=== PATIENT | male | born 1975 | race Caucasian/White ===

== ENCOUNTER 2021-10-04 12:51 | Emergency (ER) | payer OTHER, SELFPAY ==
[2021-10-04 13:11] VITALS: BP 152/92; PULSE 96; RESP 16; TEMP 37.3; O2SAT 84
--- NOTE | 2021-10-04 13:15 | ED.URI ---
HPI - URI/Sore Throat General Chief Complaint: Upper Respiratory Infection Stated Complaint: sob/weakness Source: patient and RN notes reviewed Mode of arrival: ambulatory History of Present Illness HPI Narrative: This is a 45-year-old male that presented to urgent care due to shortness of breath. According to patient he has been short of breath for approximately 7 days he does not have a history of COPD or asthma. He did test positive for Covid today. Patient does have labored breathing and is using accessory muscles. He denies any other symptoms. He will transfer over to [facility] for further diagnostic testing accepted by Dr. García Related Data Home Medications Medication Instructions Recorded Confirmed No Home Medications 10/04/21 10/04/21 Allergies Allergy/AdvReac Type Severity Reaction Status Date / Time Penicillins Allergy Unknown Verified 01/21/15 14:28 Review of Systems Review of Systems: A 14 organ system Review of Systems was performed and pertinent positives included in the HPI, otherwise remaining ROS is negative. [facility] Family History Family History (Updated 10/04/21 @ 13:20 by NATI MontesP-C) Other Family history non-contributory Exam Narrative: GENERAL: This is a well-nourished, well-developed patient, in no apparent distress. HEAD: normocephalic, atraumatic. EYES: PERRL. Sclera clear/white. Vision is grossly intact. EARS: External ears normal, auditory canals clear and without drainage, TMs normal without perforation. Hearing grossly intact. NOSE: External nose normal with no obvious nasal discharge, nares without redness, no rhinorrhea. THROAT: Mucous membranes moist, posterior pharynx clear. NECK: Neck supple, non-tender without lymphadenopathy, masses or thyromegaly. CARDIOVASCULAR: Regular rate and rhythm without murmurs, gallops, or rubs. RESPIRATORY: Diminished GASTROINTESTINAL: Abdomen soft, non-tender, nondistended. Bowel sounds are active. No hepato-splenomegaly, or palpable masses. No guarding. SKIN: warm, intact with no suspicious lesions or rash, good texture and turgor. NEURO: awake, alert, and oriented to person, place and time. There were no obvious focal neurologic abnormalities. Steady gait EXTREMITIES: Normal range of motion. No edema. No calf tenderness. Negative Homans sign bilaterally. BACK: Nontender without deformity or crepitance. No flank tenderness. Course Course Emergency Course: Patient was transferred to [facility] accepted by Dr. García Vital Signs Vital signs: Vital Signs Temperature 99.2 F 10/04/21 13:11 Pulse Rate 96 10/04/21 13:11 Respiratory Rate 16 10/04/21 13:11 Blood Pressure 152/92 H 10/04/21 13:11 Pulse Oximetry 84 L 10/04/21 13:11 Temperature 99.2 F 10/04/21 13:11 Pulse Rate 96 10/04/21 13:11 Respiratory Rate 16 10/04/21 13:11 Blood Pressure 152/92 H 10/04/21 13:11 Pulse Oximetry 84 L 10/04/21 13:11 MDM - URI/Sore Throat Differential Diagnosis Differential diagnosis: Likely upper respiratory infection and other (covid) Discharge Plan Discharge Clinical Impression: Hypoxia Patient Disposition: Acute Care Hospital Condition: Stable Prescriptions: No Action No Home Medications RF: 0 Follow-up/Referrals: UNKNOWN,DOCTOR [Primary Care Provider] - Time of Disposition: 13:11
--- NOTE | 2021-10-04 13:36 | PC.NURSE ---
1302 placed on 6l o2/mrp controller, pulse ox immediately to 94%. 1308 [facility] called for transfer. [facility] here 1320 pulse ox 98% on 6l02 and hr 88. stated sob improved.
--- NOTE | 2021-10-04 13:46 | PC.NURSE ---
[facility] aware of covid + test upon arrival to [facility].
== END 2021-10-04 13:22 | disposition short-term general hospital (02) ==
PROVIDERS: Emergency Provider Nurse Practitioner
DX: U07.1 COVID-19 (principal)
CPT/HCPCS: 87426; 99215; C9803; G0463

== ENCOUNTER 2021-10-04 13:38 | Inpatient (IN) | payer OTHER, SELFPAY ==
[2021-10-04] VITALS (35 sets, daily range): BP systolic 140–178; BP diastolic 72–124; PULSE 80–103; RESP 12–48; TEMP 36.3–36.5; O2SAT 82–98; BMI 49.4
--- NOTE | ~2021-10-04 | XR_ITS ---
EXAMINATION: XR chest 1V portable INDICATION: COVID pneumonia TECHNIQUE: Portable AP chest at 0600 hours COMPARISON: 10/04/2021 FINDINGS: There are diffuse opacities throughout all lung zones with slight improvement. No pleural e ffusion or pneumothorax is identified. The cardiomediastinal silhouette is normal. IMPRESSION: 1. Diffuse lung disease with slight interval improvement, consistent with COVID 19 pneumonia. Reviewed, dictated and finalized at location A. MANAGEMENT ASSOCIATE
--- NOTE | ~2021-10-04 | CT_ITS ---
EXAMINATION: CTA chest PE protocol DATE: 10/04/2021 16:56 INDICATION: Shortness of breath, elevated d-dimer TECHNIQUE: Computed tomography angiography (CTA) of the chest was performed with 100 mL Omnipaque-350 intravenous contrast timed to evaluate the pulmonary arteries. Coronal maximum intensity projection 3D-reconstructions were created by the technologist. The dose-length product (DLP) was 1340.21 mGy-cm . Automated exposure control and iterative reconstruction technique were employed. COMPARISON: None. FINDINGS: There is poor opacification of the pulmonary arteries. No central pulmonary embolus is iden tified. Evaluation of the pulmonary arteries is otherwise suboptimal. There are patchy groundglass op acities throughout all lung zones. No pleural effusion or pneumothorax is identified. The heart size is normal. There is mild mediastinal and bilateral hilar lymphadenopathy. There is a common origin of the celiac axis and superior mesenteric artery. IMPRESSION: 1. Suboptimal evaluation of the pulmonary arteries without central pulmonary embolus identified. 2. Diffuse lung disease, consistent with COVID 19 pneumonia. Reviewed, dictated and finalized at location A. Y NUTRITION SPECIALIST IMPRESSION: 1. Suboptimal evaluation of the pulmonary arteries without central pulmonary em bolus identified. 2. Diffuse lung disease, consistent with COVID 19 pneumonia.
--- NOTE | ~2021-10-04 | XR_ITS ---
EXAMINATION: XR chest 1V portable INDICATION: COVID 19 positive, increasing shortness of breath TECHNIQUE: Portable AP chest at 1412 hours COMPARISON: 06/15/2013 FINDINGS: There are diffuse airspace opacities throughout all lung zones. No pleural effusion or pneu mothorax is identified. The cardiomediastinal silhouette is normal. IMPRESSION: 1. Diffuse lung disease, consistent with COVID 19 pneumonia. Reviewed, dictated and finalized at location A. CLIMBER
--- NOTE | ~2021-10-04 | US_ITS ---
EXAMINATION: US venous doppler [facility] DATE: 10/05/2021 10:27 INDICATION: Lower limb edema. TECHNIQUE: Grayscale ultrasound images without and with compression and Doppler ultrasound images of the bilateral lower extremity veins were obtained. COMPARISON: Ultrasound 06/09/2013 FINDINGS: The visualized portions of right common femoral vein, profunda (deep) femoral vein, femoral vein, pop liteal vein, peroneal veins, posterior tibial veins, and greater saphenous vein outflow are patent. The visualized portions of left common femoral vein, profunda femoral vein, femoral vein, popliteal v ein, peroneal veins, posterior tibial veins, and greater saphenous vein outflow are patent. IMPRESSION: 1. No deep venous thrombosis. Reviewed, dictated and finalized at location A. LLITE DISH REPAIRER
[2021-10-04 14:37] LABS: Basophils Absolute Auto 0.1 K/mm3 (0.0-0.1); Basophils Percent Auto 0.5 % (0.2-1.2); Eosinophils Percent Auto 0.1 % (0-4.4); Hematocrit 48.8 % (42.0-52.0); Hemoglobin 17.2 g/dL (14.0-18.0); Immature Granulocyte Absolute 0.07 K/mm3 (0.00-0.031); Immature Granulocyte Percent A 0.8 % (0-0.5); Lymphocytes Absolute Auto 2.51 K/mm3 (0.9-3.2); Lymphocytes Percent Auto 27.2 % (18.3-44.2); Mean Corpuscular HGB Conc 35.2 g/dl (32-36); Mean Corpuscular Hemoglobin 31.4 pg (26-34); Mean Corpuscular Volume 89.1 fl (80-100); Mean Platelet Volume 10.9 fl (7.4-10.4); Monocytes Absolute Auto 0.7 K/mm3 (0.1-0.6); Monocytes Percent Auto 7.3 % (2.6-8.5); Neutrophils Absolute Auto 5.9 K/mm3 (1.3-6.7); Neutrophils Percent Auto 64.1 % (45.5-73.1); Platelet Count Result 230 k/mm3 (150-375); Red Blood Count 5.48 M/mm3 (4.6-6.20); Red Cell Distribution Width 12.7 % (11.5-14.5); White Blood Count 9.2 K/mm3 (4.5-10.0)
[2021-10-04] MEDS: ALBUTEROL SULFATE (*SP) AEROSOL 1 PUFF 6 PUFF INHALATION (14:41)
[2021-10-04 14:47] LABS: Base Excess ABG 4.6 mEq/l (+/-2.0); HCO3 ABG 27.3 mEq/l (22.0-26.0); PO2 ABG 58.3 mmHg (80.0-100.0)
[2021-10-04 14:48] LABS: Alveolar/Arterial O2 Gradient 215.5 mmHg; Fractional Inspired Oxygen 44 %; Oxygen Content ABG 22.6 %vol (16.0-22.0); Oxygen Saturation ABG 92.8 % (95.0-100.0); PO2 FiO2 Ratio Arterial Blood 1.32 %; Site Drawn RIGHT RADIAL; Total Hemoglobin 17.7 g/dL (12.0-18.0)
[2021-10-04 14:48] LABS: Anion Gap 8 mmol/L (8-16); Blood Urea Nitrogen 15 mg/dL (9-20); Calcium 8.6 mg/dL (8.4-10.2); Carbon Dioxide 34 mmol/L (22-30); Chloride 87 mmol/L (98-107); Estimated CRCL calculation 171 ml/min; Estimated Glomerular Filt Rate > 60; Glucose 247 mg/dL (65-110); Lactate Dehydrogenase 1101 U/L (313-618); Sodium 129 mmol/L (137-145)
[2021-10-04 14:49] LABS: Device NASAL CANNULA; Modified Allen's Test Pass
[2021-10-04 14:53] LABS: D Dimer 0.92 ug/mL (<0.48)
[2021-10-04 15:00] LABS: NT Pro B Type Natriuretic Pept 32 pg/mL (5-100); Troponin I 0.019 ng/mL (0.000-0.034)
--- NOTE | 2021-10-04 15:45 | PM.IMHP ---
H&P: HPI History of Present Illness Date/Time: 10/04/21 15:45 Chief Complaint: Shortness of breath and low oxygen saturation. Narrative: This is a 45-year-old male with no reported significant medical history who presented to the emergency department earlier today from [facility] for further evaluation of shortness of breath and low oxygen saturations. He has not been feeling well for approximately 7 days with symptoms to include sinus congestion, rhinorrhea, cough, and increasing shortness of breath over couple of days. He tested positive for COVID-19 at urgent care and he was also hypoxic in the low 80s on arrival and thus he was directed to the emergency department. A CTA of the chest was suboptimal for evaluation of the pulmonary arteries though no central pulmonary embolus was identified. It did however show diffuse lung disease consistent with COVID pneumonia and he is being admitted in this setting. He has no known sick contacts and has not been vaccinated for COVID. He denies fever, chest pain, and pleuritic pain. His smell and taste have been a bit decreased as well as his appetite though he denies nausea and vomiting. Review of Systems Review of Systems: Twelve systems were reviewed with pertinent positives and negatives as per HPI. He has not had a fever to his knowledge. No syncope or near syncope. No significant sore throat. He has had some loose stools. No dysuria. Except as documented, all other systems were reviewed and are negative. [facility] Past Medical History Medical History (Updated 10/04/21 @ 23:35 by Brianna Love PA-C) Morbid obesity Surgical History Surgical History (Updated 10/04/21 @ 23:26 by Brianna Love PA-C) History of wisdom tooth extraction Family History Family History Mother Hypertension Diabetes mellitus Father Cerebrovascular accident Social History Social History (Updated 10/04/21 @ 23:27 by Brianna Love PA-C) Social History: The patient lives in his own home and [place]. He is not currently employed. He is a former smoker and quit in 2010. No alcohol or illicit substance abuse. He designates his mother, Gale Chinchilla, as his surrogate decision maker. Code status: Full code. Meds Home Medications and Allergies Home Medications Medication Instructions Recorded Confirmed Type No Home Medications 10/04/21 10/04/21 History Allergies Allergy/AdvReac Type Severity Reaction Status Date / Time Penicillins Allergy Unknown Unknown Verified 10/04/21 19:13 Vital Signs Vital Signs - 24 hr 10/04/21 13:40 10/04/21 14:17 10/04/21 14:30 Temperature 97.5 F L Pulse Rate 96 94 Respiratory Rate 48 H 20 Blood Pressure 152/99 H Pulse Oximetry 82 L 90 89 L 10/04/21 14:31 10/04/21 14:45 10/04/21 14:46 Temperature Pulse Rate 92 98 100 Respiratory Rate 24 H 27 H 25 H Blood Pressure 140/124 H 166/105 H Pulse Oximetry 90 89 L 91 10/04/21 14:50 10/04/21 14:51 10/04/21 15:00 Temperature Pulse Rate 98 98 Respiratory Rate 20 Blood Pressure Pulse Oximetry 90 90 10/04/21 15:01 10/04/21 15:24 10/04/21 15:30 Temperature Pulse Rate 99 80 Respiratory Rate 20 20 Blood Pressure 161/114 H Pulse Oximetry 89 L 91 90 10/04/21 15:31 10/04/21 16:04 10/04/21 16:08 Temperature Pulse Rate 90 88 96 Respiratory Rate 12 24 H 20 Blood Pressure Pulse Oximetry 91 98 96 10/04/21 16:15 10/04/21 16:30 10/04/21 16:32 Temperature Pulse Rate 96 97 80 Respiratory Rate 12 12 12 Blood Pressure 148/72 H Pulse Oximetry 97 97 96 10/04/21 16:38 10/04/21 16:50 10/04/21 17:19 Temperature Pulse Rate 92 Respiratory Rate 20 Blood Pressure Pulse Oximetry 96 91 96 10/04/21 17:40 10/04/21 17:46 10/04/21 18:00 Temperature Pulse Rate 103 H 102 H 94 Respiratory Rate 20 27 H Blood Pressure Pulse Oximetry 98 10/04/21 18:0
--- NOTE | 2021-10-04 16:34 | ED.SOB ---
HPI - SOB/Dyspnea General Chief Complaint: Shortness of Breath/Dyspnea Stated Complaint: sob covid + Time Seen by Provider: 10/04/21 14:00 Source: patient Mode of arrival: ambulatory Limitations: no limitations History of Present Illness HPI Narrative: 45-year-old male Not immunized Complains of URI symptoms for a week Today he got more short of breath and presented to urgent care where he was very hypoxic on room air and had a positive rapid Covid and was sent to the hospital Related Data Home Medications Medication Instructions Recorded Confirmed No Home Medications 10/04/21 10/04/21 Allergies Allergy/AdvReac Type Severity Reaction Status Date / Time Penicillins Allergy Unknown Verified 01/21/15 14:28 Review of Systems Review of Systems: All systems reviewed & are unremarkable except as noted in HPI and below Constitutional: Constitutional: Reports no additional constitutional complaints, Denies chills, Reports fatigue, Reports fever(s), Denies headache(s) and Reports weakness Eyes: Eyes: Reports no additional eye complaints and Denies change in vision ENT: Denies headache(s), Reports nasal congestion and Denies sore throat Cardiovascular: Cardiovascular: Denies chest pain and Denies dyspnea Respiratory: Respiratory: Reports cough and Reports dyspnea Gastrointestinal: Gastrointestinal: Denies abdominal pain, Denies diarrhea and Denies vomiting Genitourinary: Genitourinary: Denies dysuria and Denies urinary frequency Musculoskeletal: Musculoskeletal: Denies deformity, Denies arthralgias, Denies joint swelling and Denies numbness Integumentary/Breasts: Skin/Breast: Denies rash and Denies wounds Neurologic: Denies headache(s), Denies focal weakness and Denies numbness Psychiatric: Psychiatric: Reports no additional psychiatric complaints Endocrine: Endocrine: Reports no additional endocrine complaints Hematologic/Lymphatic: Hematologic/Lymphatic: Reports no additional hematologic/lymphatic complaints Allergic/Immunologic: Allergic/Immunologic: Reports no additional allergic/immunologic complaints [facility] Family History Family History Other Family history non-contributory Exam Const: General: cooperative, no acute distress and alert Nutritional Appearance: obese morbidly obese Orientation/consciousness: patient oriented x3 (alert) HENMT: Head: normal to inspection, normocephalic and atraumatic Ears: external ears normal General nose exam: no epistaxis Eyes: Conjunctivae: conjunctivae normal EOM: EOMs intact bilaterally Neck: Neck: normal visual inspection, supple and no JVD Resp: Effort & Inspection: normal respiratory effort and not labored Auscultation: rales, rhonchi, no wheezes and other (BS =) Other: Tachypneic Cardio: Rate: regular rate Rhythm: regular rhythm Heart sounds: no murmurs GI: GI Palp: Yes Soft to palpation and No Tenderness to palpation present (GI) Skin: General skin exam: normal color and no rashes or lesions noted Neuro: General: patient oriented x3 (alert) and moves all extremities Speech: normal speech Extrem: General: normal to inspection and no pedal edema Psych: Affect: normal affect Course Course Emergency Course: He was placed on BiPAP and did pretty well with his respiratory rate essentially being halved and his O2 sat in the upper 90s Discussed with hospitalist for admission Vital Signs Vital signs: Vital Signs Temperature 36.4 C L 10/04/21 13:40 Pulse Rate 96 10/04/21 13:40 Respiratory Rate 48 H 10/04/21 13:40 Blood Pressure 152/99 H 10/04/21 13:40 Pulse Oximetry 82 L 10/04/21 13:40 Temperature 36.4 C L 10/04/21 13:40 Pulse Rate 88 10/04/21 16:04 Respiratory Rate 24 H 10/04/21 16:04 Blood Pressure 152/99 H 10/04/21 13:40 Pulse Oximetry 98 10/04/21 16:04 MDM - SOB/Dyspnea Medical Records Attestation: I reviewed the patient's medical records
[2021-10-04] MEDS: ENOXAPARIN 120 MG/0.8 ML SYRINGE SUB-Q (17:09)
--- NOTE | 2021-10-04 21:01 | ADMGEN ---
This patient, John Chinchilla, was admitted to IMU Room 209-01 at 2100. Patient/family oriented to hospital policies and general routines including ID bracelet, bed and alarms, visiting hours, pain management, procedures, bathroom and other care routines, personal items, smoking policy, room service/diet, and visiting hours. Information on how to activate the Rapid Response Team has been discussed. Patient/Family are encouraged to report perceived risks to care and to ask questions if they do not understand what they are told or what they should do.
[2021-10-05] VITALS (16 sets, daily range): BP systolic 135–146; BP diastolic 79–95; PULSE 70–96; RESP 20–27; TEMP 35.7–36.7; O2SAT 90–97
[2021-10-05] MEDS: amLODIPine BESYLATE 5 MG TABLET PO (00:12)
[2021-10-05 00:44] LABS: Hemoglobin A1C 12.1 % (<5.7)
[2021-10-05 00:56] LABS: Prothrombin Time 13.2 Seconds (11.1-14.7)
[2021-10-05] MEDS: REMDESIVIR 200 MG/NS 250 ML 200 MG/250 ML BAG 250 MG IVPB (01:22)
[2021-10-05 04:47] LABS: Hematocrit 48.8 % (42.0-52.0); Hemoglobin 17.1 g/dL (14.0-18.0); Mean Corpuscular Hemoglobin 30.4 pg (26-34); Mean Corpuscular Volume 86.8 fl (80-100); Mean Platelet Volume 11.1 fl (7.4-10.4); Platelet Count Result 276 k/mm3 (150-375); Red Blood Count 5.62 M/mm3 (4.6-6.20); Red Cell Distribution Width 12.6 % (11.5-14.5); White Blood Count 6.8 K/mm3 (4.5-10.0)
[2021-10-05 05:02] LABS: Prothrombin Time 12.6 Seconds (11.1-14.7)
[2021-10-05 05:09] LABS: Alanine Aminotransferase 50 U/L (4-50); Albumin Level 3.3 g/dL (3.5-5.1); Alkaline Phosphatase 165 U/L (38-126); Anion Gap 13 mmol/L (8-16); Aspartate Amino Transferase 46 U/L (17-59); Bilirubin,Total 0.7 mg/dL (0.2-1.3); Blood Urea Nitrogen 26 mg/dL (9-20); CRP 5.5 mg/dL (<1.0); Calcium 8.6 mg/dL (8.4-10.2); Carbon Dioxide 28 mmol/L (22-30); Chloride 93 mmol/L (98-107); Estimated CRCL calculation 159 ml/min; Estimated Glomerular Filt Rate > 60; Glucose 399 mg/dL (65-110); Magnesium 2.3 mg/dL (1.6-2.3); Potassium 3.9 mmol/L (3.4-5.0); Sodium 134 mmol/L (137-145)
[2021-10-05 05:25] LABS: Lactate Dehydrogenase 893 U/L (313-618)
[2021-10-05 09:29] LABS: Glucose Point of Care 324 mg/dl (65-105)
[2021-10-05] MEDS: ENOXAPARIN 40 MG/0.4 ML SYRINGE SUB-Q (09:37)
[2021-10-05] MEDS: INSULIN ASPART (*BKC) 100 UNITS/ML SUB-Q ×3 (10:20→12:13)
--- NOTE | 2021-10-05 11:24 | PM.CNPUL ---
Assessment and Plan Assessment and plan (1) Pneumonia due to 2019-nCoV: Code(s): U07.1 - COVID-19; J12.82 - Pneumonia due to coronavirus disease 2019 Status: Acute Assessment and Plan: Patient tested positive for COVID-19 on 10/04 and started on remdesivir, dexamethasone on 10/04 and ordered baricitinib on 10/05 as he is now on BiPA for hypoxic respiratory failure. He is unvaccinated. - Remdesivir for 10 days Unless he should recover and tolerate room air with rest, ambulation and while sleeping. - Dexamethasone 6 mg IV for 10 days - Baricitinib 4 mg PO q DAY X 14 days or until discharge - Continuous pulse oximetry - Prone positioning as tolerated. - Avoid any fluid overload. - Will check influenza swab. Keep saturations are 90-94% And currently on BiPAP and would try transition to nasal cannula up to 15 L plus 15 N NRB, if fails then Airvo high flow nasal cannula. I discussed code status with patient and he full code including intubation if required. Discussed with Annie Parekh, will follow with you. (2) Acute respiratory failure with hypoxia: Code(s): J96.01 - Acute respiratory failure with hypoxia Status: Acute Assessment and Plan: Etiology of hypoxic respiratory failure is COVID pneumonia. no evidence of bacterial pneumonia. No it is a evidence of cardiac disease with a normal BNP of 32. 10/04 13:30 room air sats 82% 10/04 14:45 6 L NC with sats 90% 10/04 16:00 BiPAP RR14, 14/6, 60%, sats 91% 10/05 10:00, AVAPS 14, TV 500, EPAP8, 55% with sats 95% Keep saturations are 90-94% with nasal cannula up to 15 L plus 15 L NRB and if fails then Airvo high flow nasal cannula. History of Present Illness History of Present Illness Consult date: 10/05/21 Requesting physician: Annie Parekh PA-C Reason for consult: hypoxemia and other (COVID pneumonia) Chief complaint: COVID pneumonia, Hypoxemia Narrative: 10/05/2021: This is a new pulmonary consult for COVID pneumonia with hypoxemic respiratory failure 45-year-old male with a history of obstructive sleep apnea diagnosed by polysomnogram 5 years ago who was told he needed home CPAP machine but could not tolerate this and has been on treated. Patient is on no home medicines. Patient states that 7 days ago he developed sinus congestion and rhinorrhea. This progressed to cough with brown mucus and shortness of breath. He had a decrease in his taste and smell. Patient shortness of breath progressed and he presented to an urgent care and had a rapid COVID antigen test which was positive. Patient presented to our emergency department and had a room air saturation 82%. Patient was placed on 6 L nasal cannula and had a blood gas of 7.51/35/58. Patient's white count was 9.2. Creatinine was 0.8, BNP was 32, D-dimer was positive at 0.92, CT angiogram showed no PE but diffuse bilateral patchy alveolar and interstitial infiltrates consistent with COVID pneumonia. Patient was started on dexamethasone and remdesivir. On 10/04 at 4:00 p.m. patient had worsening hypoxemia and was placed on BiPAP. At baseline patient states that he can walk 5 blocks and then has to stop for knee pain rather than respiratory issues. He has had no respiratory limitations. Patient smoked 1/2 pack of cigarettes from age [age] for total of 3.5 pack years. Patient smokes marijuana cigarette once a month since high school and his last use was approximately a month ago. 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 10/05 Patient states that he feels about the same as he did yesterday and that the BiPAP mask does help him breathe. Patient states the BiPAP pressures were not comfortable and I changed him to a noninvasive ventilation with an Lesia abscess mode with a rate of 14, tidal volume 500, expiratory pressure 8, in spite minimal inspiratory pressure 9, maximal inspiratory pressure 30, inspirator
--- NOTE | 2021-10-05 11:49 | PM.IMPN ---
Progress Note: A&P Assessment and Plan (1) Pneumonia due to 2019-nCoV: Code(s): U07.1 - COVID-19; J12.82 - Pneumonia due to coronavirus disease 2019 Status: Acute Assessment and Plan: Patient's symptoms and CT findings consistent with COVID pneumonia -continue remdesivir, Decadron, and Lovenox -CTA negative for central PE -pulmonology consulted -continue oxygen needed to keep saturations greater than 90 (2) Acute respiratory failure with hypoxia: Code(s): J96.01 - Acute respiratory failure with hypoxia Status: Acute Assessment and Plan: Secondary to COVID pneumonia -continue BiPAP and respiratory plans to transition him to Airvo to see how he does (3) Diabetes mellitus, new onset: Code(s): E11.9 - Type 2 diabetes mellitus without complications Status: Acute Assessment and Plan: Patient was noted to have hyperglycemia while hospitalized A1c is 12.1 which is consistent with new onset diabetes -he states he has no history of this -we had a long discussion about his need for insulin -we will start with 5 units with meals as well as sliding scale. I also started Lantus (will likely need to be increased). I reviewed his insurance formulary and I believe Humalog and Lantus will be covered. I have contacted care coordination as well -unit educator consulted (4) Elevated blood pressure reading: Code(s): R03.0 - Elevated blood-pressure reading, without diagnosis of hypertension Status: Acute Assessment and Plan: Last blood pressure 144/95 but has been higher earlier in the stay -received 1 dose of amlodipine and depending on his pattern we may consider scheduling this (5) Morbid obesity: Code(s): E66.01 - Morbid (severe) obesity due to excess calories Status: Acute Assessment and Plan: Patient understands the importance of a healthy your lifestyle and and weight loss (6) Hyponatremia: Code(s): E87.1 - Hypo-osmolality and hyponatremia Status: Acute Assessment and Plan: Likely due to a combination of hyperglycemia and COVID pneumonia -134 today -monitor Time Spent With Patient Time with patient: 25 - 35 minutes Subjective Date/time seen: 10/05/21 11:49 Interval history: Pt is a 45-year-old male here for COVID and new onset diabetes. Patient was seen today and states he feels okay on the BiPAP and is just hungry. He does not really feel short of breath with movement now that he is on the BiPAP. He has no chest pain, nausea, vomiting, fevers, chills, abdominal pain or new leg swelling. He said he did not know he was a diabetic and we discussed diabetes and the need for insulin. He has agreed. He is unvaccinated. Review of Systems Review of Systems: All systems reviewed & are unremarkable except as noted in HPI and below Exam Narrative: General: Overweight patient resting comfortably in bed in no acute distress HEENT: normocephalic, BiPAP applied Neck: supple Neuro: Alert and oriented x4 CV:RRR Resp: Decreased breath sounds due to body habitus, crackles heard Abd: Soft, non distended. No pain to palpation. Positive bowel sounds Extremities: No swelling, erythema, or pain to palpation. Chronic venous stasis changes. Objective Data Vital Signs Vital Signs: Vital Signs - 24 hr 10/04/21 13:40 10/04/21 14:17 10/04/21 14:30 Temperature 97.5 F L Pulse Rate 96 94 Respiratory Rate 48 H 20 Blood Pressure 152/99 H Pulse Oximetry 82 L 90 89 L 10/04/21 14:31 10/04/21 14:45 10/04/21 14:46 Temperature Pulse Rate 92 98 100 Respiratory Rate 24 H 27 H 25 H Blood Pressure 140/124 H 166/105 H Pulse Oximetry 90 89 L 91 10/04/21 14:50 10/04/21 14:51 10/04/21 15:00 Temperature Pulse Rate 98 98 Respiratory Rate 20 Blood Pressure Pulse Oximetry 90 90 10/04/21 15:01 10/04/21 15:24 10/04/21 15:30 Temperature Pulse Rate 99 80 Respir
[2021-10-05] MEDS: BARICITINIB 2 MG TABLET 4 MG PO (12:14)
[2021-10-05 12:45] LABS: Influenza Control Positive
[2021-10-05 13:46] LABS: Glucose Point of Care 366 mg/dl (65-105)
[2021-10-05 17:24] LABS: Glucose Point of Care 464 mg/dl (65-105)
[2021-10-05] MEDS: INSULIN ASPART (*BKC) 100 UNITS/ML 15 UNITS SUB-Q (17:42)
[2021-10-05 18:52] LABS: Glucose Point of Care 494 mg/dl (65-105)
[2021-10-05] MEDS: INSULIN GLARGINE (*BKC) 100 UNITS/ML 20 UNITS SUB-Q (19:26)
[2021-10-05 20:47] LABS: Glucose Point of Care 380 mg/dl (65-105)
[2021-10-05] MEDS: REMDESIVIR 100 MG/NS 250 ML 100 MG/250 ML BAG 250 MG IVPB (21:31)
[2021-10-06] VITALS (15 sets, daily range): BP systolic 143–179; BP diastolic 88–107; PULSE 65–91; RESP 20–28; TEMP 36.2–37.2; O2SAT 93–97
[2021-10-06 05:35] LABS: Basophils Absolute Auto 0.1 K/mm3 (0.0-0.1); Basophils Percent Auto 0.5 % (0.2-1.2); Eosinophils Percent Auto 0.1 % (0-4.4); Hematocrit 47.5 % (42.0-52.0); Hemoglobin 16.2 g/dL (14.0-18.0); Lymphocytes Absolute Auto 4.14 K/mm3 (0.9-3.2); Lymphocytes Percent Auto 39.6 % (18.3-44.2); Mean Corpuscular HGB Conc 34.1 g/dl (32-36); Mean Corpuscular Hemoglobin 30.6 pg (26-34); Mean Corpuscular Volume 89.8 fl (80-100); Mean Platelet Volume 10.8 fl (7.4-10.4); Monocytes Percent Auto 9.1 % (2.6-8.5); Neutrophils Absolute Auto 5.2 K/mm3 (1.3-6.7); Neutrophils Percent Auto 49.7 % (45.5-73.1); Platelet Count Result 312 k/mm3 (150-375); Red Blood Count 5.29 M/mm3 (4.6-6.20); Red Cell Distribution Width 12.9 % (11.5-14.5); White Blood Count 10.5 K/mm3 (4.5-10.0)
[2021-10-06 05:52] LABS: Alanine Aminotransferase 45 U/L (4-50); Albumin Level 3.4 g/dL (3.5-5.1); Alkaline Phosphatase 160 U/L (38-126); Anion Gap 7 mmol/L (8-16); Aspartate Amino Transferase 44 U/L (17-59); Bilirubin,Total 0.6 mg/dL (0.2-1.3); Blood Urea Nitrogen 32 mg/dL (9-20); CRP 3.3 mg/dL (<1.0); Calcium 8.6 mg/dL (8.4-10.2); Carbon Dioxide 34 mmol/L (22-30); Chloride 92 mmol/L (98-107); Estimated CRCL calculation 144 ml/min; Estimated Glomerular Filt Rate > 60; Glucose 340 mg/dL (65-110); Potassium 3.9 mmol/L (3.4-5.0); Sodium 133 mmol/L (137-145)
--- NOTE | 2021-10-06 07:57 | PM.PNPUL ---
Progress Note: A&P Assessment and Plan (1) Pneumonia due to 2019-nCoV: Code(s): U07.1 - COVID-19; J12.82 - Pneumonia due to coronavirus disease 2019 Status: Acute Assessment and Plan: Patient tested positive for COVID-19 on 10/04 and started on remdesivir, dexamethasone on 10/04 and baricitinib on 10/05 as he was on BiPAP for hypoxic respiratory failure. He is unvaccinated. - Remdesivir for 10 days Unless he should recover and tolerate room air with rest, ambulation and while sleeping. - Dexamethasone 6 mg IV for 10 days - Baricitinib 4 mg PO q DAY X 14 days or until discharge - Continuous pulse oximetry - Prone positioning as tolerated. - Avoid any fluid overload. - Will check influenza swab. Keep saturations are 90-94% And currently on BiPAP and would try transition to nasal cannula up to 15 L plus 15 N NRB, if fails then Airvo high flow nasal cannula. I discussed code status with patient and he full code including intubation if required. 10/06 Patient currently on 14 L high-flow nasal cannula with saturations 96%. Patient states that his breathing is better. Lower extremity Dopplers were negative for DVT. His CRP has decreased to 3.3. influenza swab is negative. will follow with you. (2) Acute respiratory failure with hypoxia: Code(s): J96.01 - Acute respiratory failure with hypoxia Status: Acute Assessment and Plan: Etiology of hypoxic respiratory failure is COVID pneumonia. no evidence of bacterial pneumonia. No it is a evidence of cardiac disease with a normal BNP of 32. 10/04 13:30 room air sats 82% 10/04 14:45 6 L NC with sats 90% 10/04 16:00 BiPAP RR14, 14/6, 60%, sats 91% 10/05 10:00, AVAPS 14, TV 500, EPAP8, 55% with sats 95% 10/05 13:00 15 L NC with sats 92% 10/05 20:00 14 L NC with sats 92% 10/06 07:00 14 L NC with sats 95% Keep saturations are 90-94% with nasal cannula up to 15 L plus 15 L NRB and if fails then Airvo high flow nasal cannula and if fails then BiPAP and if fails then intubation. Subjective Date/time seen: 10/06/21 07:57 Interval history: 10/05/2021: This is a new pulmonary consult for COVID pneumonia with hypoxemic respiratory failure 45-year-old male with a history of obstructive sleep apnea diagnosed by polysomnogram 5 years ago who was told he needed home CPAP machine but could not tolerate this and has been on treated. Patient is on no home medicines. Patient states that 7 days ago he developed sinus congestion and rhinorrhea. This progressed to cough with brown mucus and shortness of breath. He had a decrease in his taste and smell. Patient shortness of breath progressed and he presented to an urgent care and had a rapid COVID antigen test which was positive. Patient presented to our emergency department and had a room air saturation 82%. Patient was placed on 6 L nasal cannula and had a blood gas of 7.51/35/58. Patient's white count was 9.2. Creatinine was 0.8, BNP was 32, D-dimer was positive at 0.92, CT angiogram showed no PE but diffuse bilateral patchy alveolar and interstitial infiltrates consistent with COVID pneumonia. Patient was started on dexamethasone and remdesivir. On 10/04 at 4:00 p.m. patient had worsening hypoxemia and was placed on BiPAP. At baseline patient states that he can walk 5 blocks and then has to stop for knee pain rather than respiratory issues. He has had no respiratory limitations. Patient smoked 1/2 pack of cigarettes from age [age] for total of 3.5 pack years. Patient smokes marijuana cigarette once a month since high school and his last use was approximately a month ago. 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 10/05 Patient states that he feels about the same as he did yesterday and that the BiPAP mask does help him breathe. Patient states the BiPAP pressures were not comfortable and I changed him to a noninvasive venti
[2021-10-06] MEDS: ENOXAPARIN 40 MG/0.4 ML SYRINGE SUB-Q (09:26)
[2021-10-06] MEDS: BARICITINIB 2 MG TABLET 4 MG PO (09:26)
[2021-10-06] MEDS: INSULIN ASPART (*BKC) 100 UNITS/ML 7 UNITS SUB-Q ×3 (09:28→17:17)
[2021-10-06] MEDS: INSULIN ASPART (*BKC) 100 UNITS/ML SUB-Q ×3 (09:28→17:17)
[2021-10-06 10:30] LABS: Glucose Point of Care 283 mg/dl (65-105)
[2021-10-06] MEDS: hydrALAZINE HCL 20 MG/ML VIAL 10 MG IV PUSH (10:47)
--- NOTE | 2021-10-06 12:52 | PM.IMPN ---
Progress Note: A&P Assessment and Plan (1) Pneumonia due to 2019-nCoV: Code(s): U07.1 - COVID-19; J12.82 - Pneumonia due to coronavirus disease 2019 Status: Acute Assessment and Plan: Patient's symptoms and CT findings consistent with COVID pneumonia and PCR confirms this -continue remdesivir, Decadron, baricitinib, and Lovenox -CTA negative for central PE -pulmonology consulted -continue oxygen needed to keep saturations greater than 90 (2) Acute respiratory failure with hypoxia: Code(s): J96.01 - Acute respiratory failure with hypoxia Status: Acute Assessment and Plan: Secondary to COVID pneumonia -continue o2 and wean as tolerated (3) Diabetes mellitus, new onset: Code(s): E11.9 - Type 2 diabetes mellitus without complications Status: Acute Assessment and Plan: Last glucose 283 but has been higher than 400 this stay -A1c is 12.1 which is consistent with new onset diabetes -he states he has no history of this -we had a long discussion about his need for insulin -Increase lantus to 30u daily and do 7u of scheduled insulin with SSI as well. -elementary educator consulted (4) Morbid obesity: Code(s): E66.01 - Morbid (severe) obesity due to excess calories Status: Acute Assessment and Plan: Patient understands the importance of a healthy your lifestyle and and weight loss (5) Hyponatremia: Code(s): E87.1 - Hypo-osmolality and hyponatremia Status: Acute Assessment and Plan: Likely due to a combination of hyperglycemia and COVID pneumonia -133 today -monitor (6) Essential hypertension: Code(s): I10 - Essential (primary) hypertension Status: Acute Assessment and Plan: Last bp 179/107 (hydralizine given) -pt has a hx of htn but stopped his medication. Will start norvasc daily Subjective Date/time seen: 10/06/21 12:52 Interval history: Pt is a 45-year-old male here for COVID and new onset diabetes. Patient was seen today and states he feels good. He doesn't really have much SOB at rest or with walking. He has a very mild dry cough. He has no chest pain, nausea, vomiting, fevers, chills, abdominal pain or new leg swelling. He has had a hx of htn in the past. He is unvaccinated. Exam Narrative: General: Overweight patient resting comfortably in bed in no acute distress HEENT: normocephalic, highflow o2 applied Neck: supple Neuro: Alert and oriented x4 CV:RRR. tele with no abnormal reviews Resp: Decreased breath sounds due to body habitus Abd: Soft, non distended. No pain to palpation. Positive bowel sounds Extremities: No swelling, erythema, or pain to palpation. Chronic venous stasis changes. Objective Data Vital Signs Vital Signs: Vital Signs - 24 hr 10/05/21 13:01 10/05/21 14:00 10/05/21 16:00 Temperature 98.0 F Pulse Rate 85 91 Respiratory Rate 20 Blood Pressure 146/84 H Pulse Oximetry 92 96 10/05/21 18:00 10/05/21 20:00 10/05/21 22:00 Temperature 97.9 F Pulse Rate 87 80 79 Respiratory Rate 20 Blood Pressure 141/79 H Pulse Oximetry 92 10/06/21 00:00 10/06/21 02:00 10/06/21 04:00 Temperature 97.2 F L 97.8 F Pulse Rate 70 73 69 Respiratory Rate 20 24 H Blood Pressure 158/91 H 150/105 H Pulse Oximetry 93 94 10/06/21 06:00 10/06/21 08:00 10/06/21 08:57 Temperature 97.4 F L Pulse Rate 65 71 Respiratory Rate 28 H Blood Pressure 179/107 H Pulse Oximetry 96 94 10/06/21 10:00 Temperature Pulse Rate 80 Respiratory Rate Blood Pressure Pulse Oximetry Intake/Output Intake/Output: Intake & Output 10/03/21 10/04/21 10/05/21 10/06/21 23:59 23:59 23:59 23:59 Intake Total 1580 1690 Output Total 1600 1100 Balance -20 590 Meds/Results Medications: Active Medications Generic Name Dose Route Start Last Admin Trade Name Freq PRN Reason Stop Dose Admin Acetaminophen 650 mg 10/04/21 16:
[2021-10-06 13:09] LABS: Glucose Point of Care 298 mg/dl (65-105)
[2021-10-06 19:36] LABS: Glucose Point of Care 354 mg/dl (65-105)
[2021-10-06] MEDS: REMDESIVIR 100 MG/NS 250 ML 100 MG/250 ML BAG 250 MG IVPB (21:08)
[2021-10-06] MEDS: INSULIN GLARGINE (*BKC) 100 UNITS/ML 30 UNITS SUB-Q (21:08)
[2021-10-06 21:16] LABS: Glucose Point of Care 316 mg/dl (65-105)
[2021-10-07] VITALS (13 sets, daily range): BP systolic 139–156; BP diastolic 89–101; PULSE 62–89; RESP 18–20; TEMP 36.4–37; O2SAT 91–99
[2021-10-07 06:09] LABS: Basophils Absolute Auto 0.1 K/mm3 (0.0-0.1); Basophils Percent Auto 0.7 % (0.2-1.2); Eosinophils Absolute Auto 0.1 K/mm3 (0-0.3); Eosinophils Percent Auto 0.6 % (0-4.4); Hematocrit 45.4 % (42.0-52.0); Hemoglobin 15.6 g/dL (14.0-18.0); Immature Granulocyte Absolute 0.13 K/mm3 (0.00-0.031); Immature Granulocyte Percent A 1.2 % (0-0.5); Lymphocytes Absolute Auto 4.46 K/mm3 (0.9-3.2); Lymphocytes Percent Auto 42.1 % (18.3-44.2); Mean Corpuscular HGB Conc 34.4 g/dl (32-36); Mean Corpuscular Hemoglobin 30.5 pg (26-34); Mean Corpuscular Volume 88.7 fl (80-100); Mean Platelet Volume 10.6 fl (7.4-10.4); Monocytes Absolute Auto 1.1 K/mm3 (0.1-0.6); Monocytes Percent Auto 10.7 % (2.6-8.5); Neutrophils Absolute Auto 4.8 K/mm3 (1.3-6.7); Neutrophils Percent Auto 44.7 % (45.5-73.1); Platelet Count Result 317 k/mm3 (150-375); Red Blood Count 5.12 M/mm3 (4.6-6.20); Red Cell Distribution Width 12.5 % (11.5-14.5); White Blood Count 10.6 K/mm3 (4.5-10.0)
[2021-10-07 06:16] LABS: Alanine Aminotransferase 46 U/L (4-50); Anion Gap 5 mmol/L (8-16); Aspartate Amino Transferase 47 U/L (17-59); Blood Urea Nitrogen 27 mg/dL (9-20); CRP 1.3 mg/dL (<1.0); Calcium 8.4 mg/dL (8.4-10.2); Carbon Dioxide 29 mmol/L (22-30); Chloride 93 mmol/L (98-107); Estimated CRCL calculation 199 ml/min; Estimated Glomerular Filt Rate > 60; Glucose 247 mg/dL (65-110); Sodium 127 mmol/L (137-145)
[2021-10-07 07:01] LABS: Prothrombin Time 13.3 Seconds (11.1-14.7)
[2021-10-07 08:53] LABS: Glucose Point of Care 197 mg/dl (65-105)
[2021-10-07] MEDS: ENOXAPARIN 40 MG/0.4 ML SYRINGE SUB-Q (09:13)
[2021-10-07] MEDS: BARICITINIB 2 MG TABLET 4 MG PO (09:13)
[2021-10-07] MEDS: INSULIN ASPART (*BKC) 100 UNITS/ML 7 UNITS SUB-Q ×3 (09:14→16:57)
[2021-10-07] MEDS: amLODIPine BESYLATE 5 MG TABLET PO (09:14)
[2021-10-07 09:45] LABS: Sodium Urine Random 24 meq/L
[2021-10-07 12:42] LABS: Glucose Point of Care 282 mg/dl (65-105)
--- NOTE | 2021-10-07 13:06 | PM.PNPUL ---
Progress Note: A&P Assessment and Plan (1) Pneumonia due to 2019-nCoV: Code(s): U07.1 - COVID-19; J12.82 - Pneumonia due to coronavirus disease 2019 Status: Acute Assessment and Plan: Patient tested positive for COVID-19 on 10/04 and started on remdesivir, dexamethasone on 10/04 and baricitinib on 10/05 as he was on BiPAP for hypoxic respiratory failure. He is unvaccinated. - Remdesivir for 10 days Unless he should recover and tolerate room air with rest, ambulation and while sleeping. - Dexamethasone 6 mg IV for 10 days - Baricitinib 4 mg PO q DAY X 14 days or until discharge - Continuous pulse oximetry - Prone positioning as tolerated. - Avoid any fluid overload. - Will check influenza swab. Keep saturations are 90-94% And currently on BiPAP and would try transition to nasal cannula up to 15 L plus 15 N NRB, if fails then Airvo high flow nasal cannula. I discussed code status with patient and he full code including intubation if required. 10/06 Patient currently on 14 L high-flow nasal cannula with saturations 96%. Patient states that his breathing is better. Lower extremity Dopplers were negative for DVT. His CRP has decreased to 3.3. influenza swab is negative. 10/07. Patient currently on 4 L high-flow nasal cannula saturations 94%. Chest x-ray demonstrated mild improvement in his diffuse interstitial alveolar infiltrates. He is afebrile. Patient states that he is feeling better. Patient should have home O2 assessment an overnight oximetry prior to discharge to determine his oxygen needs. Patient should have chest x-ray prior to discharge to serve as a new baseline. Discussed with Annie gao. Will sign off. Please call with questions.. (2) Acute respiratory failure with hypoxia: Code(s): J96.01 - Acute respiratory failure with hypoxia Status: Acute Assessment and Plan: Etiology of hypoxic respiratory failure is COVID pneumonia. no evidence of bacterial pneumonia. No it is a evidence of cardiac disease with a normal BNP of 32. 10/04 13:30 room air sats 82% 10/04 14:45 6 L NC with sats 90% 10/04 16:00 BiPAP RR14, 14/6, 60%, sats 91% 10/05 10:00, AVAPS 14, TV 500, EPAP8, 55% with sats 95% 10/05 13:00 15 L NC with sats 92% 10/05 20:00 14 L NC with sats 92% 10/06 07:00 14 L NC with sats 95% 10/07 11:00 4 L HF with sats 94% Keep saturations are 90-94% with nasal cannula up to 15 L plus 15 L NRB and if fails then Airvo high flow nasal cannula and if fails then BiPAP and if fails then intubation. Subjective Date/time seen: 10/07/21 13:06 Interval history: 10/05/2021: This is a new pulmonary consult for COVID pneumonia with hypoxemic respiratory failure 45-year-old male with a history of obstructive sleep apnea diagnosed by polysomnogram 5 years ago who was told he needed home CPAP machine but could not tolerate this and has been on treated. Patient is on no home medicines. Patient states that 7 days ago he developed sinus congestion and rhinorrhea. This progressed to cough with brown mucus and shortness of breath. He had a decrease in his taste and smell. Patient shortness of breath progressed and he presented to an urgent care and had a rapid COVID antigen test which was positive. Patient presented to our emergency department and had a room air saturation 82%. Patient was placed on 6 L nasal cannula and had a blood gas of 7.51/35/58. Patient's white count was 9.2. Creatinine was 0.8, BNP was 32, D-dimer was positive at 0.92, CT angiogram showed no PE but diffuse bilateral patchy alveolar and interstitial infiltrates consistent with COVID pneumonia. Patient was started on dexamethasone and remdesivir. On 10/04 at 4:00 p.m. patient had worsening hypoxemia and was placed on BiPAP. At baseline patient states that he can walk 5 blocks and then has to stop for knee pain rather than respiratory issues. He has had no respiratory limitations. Patient smoked 1/2 pack of c
[2021-10-07] MEDS: INSULIN ASPART (*BKC) 100 UNITS/ML SUB-Q ×2 (13:14→16:57)
--- NOTE | 2021-10-07 13:38 | PM.IMPN ---
Progress Note: A&P Assessment and Plan (1) Pneumonia due to 2019-nCoV: Code(s): U07.1 - COVID-19; J12.82 - Pneumonia due to coronavirus disease 2019 Status: Acute Assessment and Plan: Patient's symptoms and CT findings consistent with COVID pneumonia and PCR confirms this -continue remdesivir, Decadron, baricitinib, and Lovenox -CTA negative for central PE -pulmonology consulted -down to 4L, was on bipap on admission -continue oxygen needed to keep saturations greater than 90 -okay to move to a regular medical floor with continuous pulse ox. (2) Acute respiratory failure with hypoxia: Code(s): J96.01 - Acute respiratory failure with hypoxia Status: Acute Assessment and Plan: Secondary to COVID pneumonia -continue o2 and wean as tolerated (3) Diabetes mellitus, new onset: Code(s): E11.9 - Type 2 diabetes mellitus without complications Status: Acute Assessment and Plan: Last glucose 282 but has been higher than 400 this stay -A1c is 12.1 which is consistent with new onset diabetes -he states he has no history of this -we had a long discussion about his need for insulin -Continue Lantus 30u daily and 7u of scheduled insulin with SSI as well. -satellite communications operator consulted (4) Morbid obesity: Code(s): E66.01 - Morbid (severe) obesity due to excess calories Status: Acute Assessment and Plan: Patient understands the importance of a healthy your lifestyle and and weight loss (5) Hyponatremia: Code(s): E87.1 - Hypo-osmolality and hyponatremia Status: Acute Assessment and Plan: Likely due to a combination of hyperglycemia and COVID pneumonia -127 today and 129-131 when corrected for hypoglycemia -Urine sodium 24 -will place on a fluid restriction -monitor (6) Essential hypertension: Code(s): I10 - Essential (primary) hypertension Status: Acute Assessment and Plan: Last bp 155/101 -pt has a hx of htn but stopped his medication. -Norvas started this stay, continue with this Subjective Date/time seen: 10/07/21 13:38 Interval history: Pt is a 45-year-old male here for COVID and new onset diabetes. Patient was seen today and states he feels good. He doesn't really have much SOB at rest or with walking. He has a very mild dry cough. He has no chest pain, nausea, vomiting, fevers, chills, abdominal pain or new leg swelling. He is eating and drinking okay. he had some soft stool today. Exam Narrative: General: Overweight patient resting comfortably in bed in no acute distress HEENT: normocephalic, highflow o2 applied Neck: supple Neuro: Alert and oriented x4. CV:RRR. Triplet pvc noted Resp: Decreased breath sounds due to body habitus Abd: Soft, non distended. No pain to palpation. Positive bowel sounds Extremities: Chronic non-pitting swelling with chronic venous stasis changes to both LE. Objective Data Vital Signs Vital Signs: Vital Signs - 24 hr 10/06/21 14:00 10/06/21 16:00 10/06/21 18:00 Temperature 98.9 F Pulse Rate 79 77 79 Respiratory Rate 22 H Blood Pressure 143/88 H Pulse Oximetry 96 10/06/21 20:00 10/06/21 20:20 10/06/21 22:00 Temperature 98.7 F Pulse Rate 75 73 Respiratory Rate 20 Blood Pressure 143/96 H Pulse Oximetry 96 96 10/07/21 00:00 10/07/21 02:00 10/07/21 04:00 Temperature 97.5 F L 97.5 F L Pulse Rate 71 64 79 Respiratory Rate 18 20 Blood Pressure 139/97 H 146/96 H Pulse Oximetry 94 95 10/07/21 06:00 10/07/21 08:00 10/07/21 10:00 Temperature 98.6 F Pulse Rate 89 70 79 Respiratory Rate 20 Blood Pressure 147/95 H Pulse Oximetry 94 10/07/21 12:00 Temperature 98.2 F Pulse Rate 72 Respiratory Rate 20 Blood Pressure 155/101 H Pulse Oximetry 92 Intake/Output Intake/Output: Intake & Output 10/04/21 10/05/21 10/06/21 10/07/21 23:59 23:59 23:59 23:59 Intake Total 7986 8805 1990 Output
[2021-10-07 16:47] LABS: Glucose Point of Care 347 mg/dl (65-105)
[2021-10-07] MEDS: INSULIN GLARGINE (*BKC) 100 UNITS/ML 30 UNITS SUB-Q (21:01)
[2021-10-07] MEDS: REMDESIVIR 100 MG/NS 250 ML 100 MG/250 ML BAG 250 MG IVPB (21:01)
[2021-10-07 22:03] LABS: Glucose Point of Care 255 mg/dl (65-105)
[2021-10-08] VITALS (7 sets, daily range): BP systolic 137–149; BP diastolic 75–92; PULSE 74–81; RESP 14–16; TEMP 36.7–37; O2SAT 93–96; BMI 48.3
--- NOTE | 2021-10-08 01:26 | PC.NURSE ---
This patient, John Chinchilal, was transferred to [[facility] ] on 10/08/21 at 0115 on Room Air . Personal belongings sent with patient. Report given to [Florian ]. Appropriate documentation sent with patient.
[2021-10-08 08:09] LABS: Glucose Point of Care 172 mg/dl (65-105)
--- NOTE | 2021-10-08 08:16 | PC.NURSE ---
10/08/21 Pt admitted to [facility] surge room 320-1 from IMU
[2021-10-08] MEDS: INSULIN ASPART (*BKC) 100 UNITS/ML 7 UNITS SUB-Q ×3 (09:16→17:37)
[2021-10-08] MEDS: ENOXAPARIN 40 MG/0.4 ML SYRINGE SUB-Q (09:16)
[2021-10-08] MEDS: amLODIPine BESYLATE 5 MG TABLET PO (09:16)
[2021-10-08] MEDS: BARICITINIB 2 MG TABLET 4 MG PO (09:16)
[2021-10-08 09:31] LABS: Prothrombin Time 13.4 Seconds (11.1-14.7)
[2021-10-08 09:32] LABS: Basophils Percent Auto 0.4 % (0.2-1.2); Eosinophils Absolute Auto 0.1 K/mm3 (0-0.3); Eosinophils Percent Auto 1.2 % (0-4.4); Hematocrit 49.5 % (42.0-52.0); Hemoglobin 17.1 g/dL (14.0-18.0); Immature Granulocyte Absolute 0.22 K/mm3 (0.00-0.031); Lymphocytes Absolute Auto 4.23 K/mm3 (0.9-3.2); Lymphocytes Percent Auto 38.4 % (18.3-44.2); Mean Corpuscular HGB Conc 34.5 g/dl (32-36); Mean Corpuscular Hemoglobin 31.1 pg (26-34); Monocytes Absolute Auto 1.1 K/mm3 (0.1-0.6); Monocytes Percent Auto 9.5 % (2.6-8.5); Neutrophils Absolute Auto 5.3 K/mm3 (1.3-6.7); Neutrophils Percent Auto 48.5 % (45.5-73.1); Platelet Count Result 352 k/mm3 (150-375); Red Cell Distribution Width 12.7 % (11.5-14.5)
[2021-10-08 09:36] LABS: Alanine Aminotransferase 56 U/L (4-50); Anion Gap 6 mmol/L (8-16); Aspartate Amino Transferase 52 U/L (17-59); Blood Urea Nitrogen 21 mg/dL (9-20); Calcium 8.9 mg/dL (8.4-10.2); Carbon Dioxide 35 mmol/L (22-30); Chloride 95 mmol/L (98-107); Estimated CRCL calculation 156 ml/min; Estimated Glomerular Filt Rate > 60; Glucose 177 mg/dL (65-110); Magnesium 2.2 mg/dL (1.6-2.3); Potassium 4.3 mmol/L (3.4-5.0); Sodium 136 mmol/L (137-145)
[2021-10-08 11:46] LABS: Glucose Point of Care 269 mg/dl (65-105)
[2021-10-08 12:00] LABS: Sodium 133 mmol/L (137-145)
[2021-10-08] MEDS: INSULIN ASPART (*BKC) 100 UNITS/ML SUB-Q ×2 (12:49→17:36)
--- NOTE | 2021-10-08 13:24 | PM.IMPN ---
Progress Note: A&P Assessment and Plan (1) Pneumonia due to 2019-nCoV: Code(s): U07.1 - COVID-19; J12.82 - Pneumonia due to coronavirus disease 2019 Status: Acute Assessment and Plan: Patient's symptoms and CT findings consistent with COVID pneumonia and PCR confirms this -continue remdesivir (day 4), Decadron, baricitinib, and Lovenox -CTA negative for central PE -now on RA. Plan for home o2 tomorrow with possible d/c (2) Acute respiratory failure with hypoxia: Code(s): J96.01 - Acute respiratory failure with hypoxia Status: Acute Assessment and Plan: Secondary to COVID pneumonia -resolved (3) Diabetes mellitus, new onset: Code(s): E11.9 - Type 2 diabetes mellitus without complications Status: Acute Assessment and Plan: Last glucose 269 -A1c is 12.1 which is consistent with new onset diabetes -he states he has no history of this -we had a long discussion about his need for insulin -Continue Lantus 30u daily and 7u of scheduled insulin with SSI as well. -certified lactation educator consulted (4) Morbid obesity: Code(s): E66.01 - Morbid (severe) obesity due to excess calories Status: Acute Assessment and Plan: Patient understands the importance of a healthy your lifestyle and and weight loss (5) Hyponatremia: Code(s): E87.1 - Hypo-osmolality and hyponatremia Status: Acute Assessment and Plan: Likely due to a combination of hyperglycemia and COVID pneumonia -133 today -Urine sodium 24 -okay to stop fluid restriction -monitor (6) Essential hypertension: Code(s): I10 - Essential (primary) hypertension Status: Acute Assessment and Plan: Last bp 137/75 -pt has a hx of htn but stopped his medication. -Norvas started this stay, continue with this Subjective Date/time seen: 10/08/21 13:24 Interval history: Pt is a 46-year-old male here for COVID and new onset diabetes. Patient was seen today and states he feels good. He doesn't really have much SOB at rest or with walking. He has a very mild dry cough with scant sputum production that is clear. He has no chest pain, nausea, vomiting, fevers, chills, abdominal pain or new leg swelling. He is eating and drinking okay. he had one episode of diarrhea today. Exam Narrative: General: Overweight patient resting comfortably in bed in no acute distress HEENT: normocephalic Neck: supple Neuro: Alert and oriented x4. CV:RRR. Resp: Decreased breath sounds due to body habitus. on RA at 93% Abd: Soft, non distended. No pain to palpation. Positive bowel sounds Extremities: Chronic non-pitting swelling with chronic venous stasis changes to both LE. Objective Data Vital Signs Vital Signs: Vital Signs - 24 hr 10/07/21 15:00 10/07/21 17:11 10/07/21 18:00 Temperature 97.5 F L Pulse Rate 75 Respiratory Rate 20 Blood Pressure 152/98 H Pulse Oximetry 93 91 93 10/07/21 20:00 10/07/21 21:08 10/07/21 23:00 Temperature 98.1 F Pulse Rate 74 Respiratory Rate 20 Blood Pressure 156/89 H Pulse Oximetry 91 91 92 10/08/21 08:00 10/08/21 08:10 10/08/21 11:45 Temperature 98.4 F 98.6 F Pulse Rate 78 81 Respiratory Rate 14 14 Blood Pressure 149/80 H 137/75 Pulse Oximetry 94 93 94 Intake/Output Intake/Output: Intake & Output 10/05/21 10/06/21 10/07/21 10/08/21 23:59 23:59 23:59 23:59 Intake Total 1580 3690 2450 580 Output Total 1600 3000 3200 300 Balance -20 690 -750 280 Meds/Results Medications: Active Medications Generic Name Dose Route Start Last Admin Trade Name Martinq PRN Reason Stop Dose Admin Acetaminophen 650 mg 10/04/21 16:39 Acetaminophen 325 Mg Tablet PO Q4H PRN Mild Pain (1-3) or Fever Amlodipine Besylate 5 mg 10/07/21 09:00 10/08/21 09:16 Amlodipine Besylate 5 Mg Tablet PO 5 mg QAM ALVA Administration Baricitinib 4 mg 10/05/21 11:05 10/08/21 09:16 B
[2021-10-08 16:24] LABS: Glucose Point of Care 269 mg/dl (65-105)
[2021-10-08] MEDS: EUCERIN CREAM 120 GM JAR 1 APPLIC TOPICAL (17:36)
[2021-10-08] MEDS: REMDESIVIR 100 MG/NS 250 ML 100 MG/250 ML BAG 250 MG IVPB (21:00)
[2021-10-08] MEDS: INSULIN GLARGINE (*BKC) 100 UNITS/ML 30 UNITS SUB-Q (21:00)
[2021-10-08 21:57] LABS: Glucose Point of Care 280 mg/dl (65-105)
[2021-10-09] VITALS (7 sets, daily range): BP systolic 137–151; BP diastolic 92–103; PULSE 62–73; RESP 16–22; TEMP 35.8–36.7; O2SAT 93–96
[2021-10-09 06:32] LABS: Basophils Absolute Auto 0.1 K/mm3 (0.0-0.1); Basophils Percent Auto 0.5 % (0.2-1.2); Eosinophils Absolute Auto 0.2 K/mm3 (0-0.3); Eosinophils Percent Auto 1.4 % (0-4.4); Hematocrit 49.9 % (42.0-52.0); Immature Granulocyte Absolute 0.26 K/mm3 (0.00-0.031); Immature Granulocyte Percent A 2.4 % (0-0.5); Lymphocytes Absolute Auto 4.59 K/mm3 (0.9-3.2); Lymphocytes Percent Auto 41.8 % (18.3-44.2); Mean Corpuscular HGB Conc 34.1 g/dl (32-36); Mean Corpuscular Hemoglobin 30.1 pg (26-34); Mean Corpuscular Volume 88.5 fl (80-100); Mean Platelet Volume 9.8 fl (7.4-10.4); Monocytes Absolute Auto 1.1 K/mm3 (0.1-0.6); Monocytes Percent Auto 9.9 % (2.6-8.5); Neutrophils Absolute Auto 4.9 K/mm3 (1.3-6.7); Platelet Count Result 364 k/mm3 (150-375); Red Blood Count 5.64 M/mm3 (4.6-6.20); Red Cell Distribution Width 12.4 % (11.5-14.5)
[2021-10-09 06:46] LABS: Alanine Aminotransferase 57 U/L (4-50); Albumin Level 3.3 g/dL (3.5-5.1); Alkaline Phosphatase 153 U/L (38-126); Anion Gap 7 mmol/L (8-16); Aspartate Amino Transferase 47 U/L (17-59); Bilirubin,Total 0.5 mg/dL (0.2-1.3); Blood Urea Nitrogen 19 mg/dL (9-20); Carbon Dioxide 33 mmol/L (22-30); Chloride 97 mmol/L (98-107); Estimated CRCL calculation 129 ml/min; Estimated Glomerular Filt Rate > 60; Glucose 200 mg/dL (65-110); Potassium 4.2 mmol/L (3.4-5.0); Sodium 137 mmol/L (137-145)
[2021-10-09 08:01] LABS: Glucose Point of Care 181 mg/dl (65-105)
[2021-10-09] MEDS: amLODIPine BESYLATE 5 MG TABLET PO (08:31)
[2021-10-09] MEDS: BARICITINIB 2 MG TABLET 4 MG PO (08:31)
[2021-10-09] MEDS: ENOXAPARIN 40 MG/0.4 ML SYRINGE SUB-Q (08:31)
[2021-10-09] MEDS: EUCERIN CREAM 120 GM JAR 1 APPLIC TOPICAL (08:32)
[2021-10-09] MEDS: INSULIN ASPART (*BKC) 100 UNITS/ML 7 UNITS SUB-Q ×2 (08:32→12:27)
--- NOTE | 2021-10-09 11:10 | HOMEO2EVAL ---
Evaluation was performed at [facility] Home Oxygen Evaluation RC: Home Oxygen (O2) Evaluation Start: 10/09/21 08:00 Freq: ONCE Status: Active Protocol: RPE Activity Type Activity Date Activity User E-Sign Co-Sign Detail Recorded Client Recorded Date Recorded By Document 10/09/21 10:45 MALORIE [email or web address] 10/09/21 11:09 MALORIE Document 10/09/21 10:50 MALORIE [email or web address] 10/09/21 11:09 MALORIE Document 10/09/21 10:55 MALORIE [email or web address] 10/09/21 11:09 MALORIE 10/09/21 10/09/21 10/09/21 10:45 10:50 10:55 Home O2 Evaluation Test Phase Resting Exercise Resting Oxygen Delivery Room Air Room Air Room Air Pulse Oximetry (90-100 %) 95 93 94
--- NOTE | 2021-10-09 11:10 | PCRCNOTE ---
HOME O2 EVAL DONE, NO HOME O2 NEEDED.
[2021-10-09 11:45] LABS: Glucose Point of Care 233 mg/dl (65-105)
[2021-10-09] MEDS: INSULIN ASPART (*BKC) 100 UNITS/ML SUB-Q (12:28)
--- NOTE | 2021-10-09 13:16 | PM.DS ---
DS: Admitting Diagnosis Discharge Date 10/09/21 Admitting Diagnosis covid, respiratory failure DS: Discharge Diagnosis Discharge Diagnosis (1) Pneumonia due to 2019-nCoV: Code(s): U07.1 - COVID-19; J12.82 - Pneumonia due to coronavirus disease 2019 Status: Acute Assessment and Plan: Patient's symptoms and CT findings consistent with COVID pneumonia and PCR confirms this -patient received remdesivir, Decadron, baricitinib, and Lovenox while hospitalized -CTA negative for central PE -he was able to be weaned off oxygen. Home oxygen evaluation shows he does not need any further oxygen at home (2) Acute respiratory failure with hypoxia: Code(s): J96.01 - Acute respiratory failure with hypoxia Status: Acute Assessment and Plan: Secondary to COVID pneumonia -resolved (3) Diabetes mellitus, new onset: Code(s): E11.9 - Type 2 diabetes mellitus without complications Status: Acute Assessment and Plan: Last glucose 233 -A1c is 12.1 which is consistent with new onset diabetes -he states he has no history of this -we had a long discussion about his need for insulin -will do long-acting insulin as well as sliding scale insulin for meals. Metformin is also added. It is unclear how much insulin he will need since he was on Decadron throughout his entire stay here. He needs to find a primary care physician or see an appian bpm developer so this can be adjusted. Patient fully aware of this (4) Morbid obesity: Code(s): E66.01 - Morbid (severe) obesity due to excess calories Status: Acute Assessment and Plan: Patient understands the importance of a healthy your lifestyle and and weight loss (5) Hyponatremia: Code(s): E87.1 - Hypo-osmolality and hyponatremia Status: Acute Assessment and Plan: Likely due to a combination of hyperglycemia and COVID pneumonia -137 discharge -Urine sodium 24 (6) Essential hypertension: Code(s): I10 - Essential (primary) hypertension Status: Acute Assessment and Plan: Last bp 151/99 -pt has a hx of htn but stopped his medication. -Norvasc started this stay, continue with this DS: Summary Hospital Course Hospital Course: DOS 10/09/21 Is a 46-year-old male who presented emergency room on 10/04/2021 for upper respiratory symptoms, shortness of breath and COVID positive resolved upper urgent care. Vitals in the ER were temperature 36.4? C, pulse 96, respiratory rate 48, blood pressure 152/99, pulse ox 82 on room air. Patient was placed BiPAP and improved. CBC within normal limits. BMP showed hyponatremia 129. Patient was admitted to the hospitalist service and started on remdesivir, baricitinib, Decadron, and Lovenox. CTA of the chest did not show any PE. He required BiPAP but was able to be weaned off and actually improved significantly and was on room air the day of discharge. He did not require any oxygen at home. While he was here, he was diagnosed with new onset diabetes and spoke with the billing services manager. A1c was 12.1. Lantus and mealtime insulin were started at discharge as well as metformin. Patient understands the importance of good glucose control and we had a long discussion about insulin and hypoglycemia affects. Since he was on Decadron throughout his stay is unclear how much insulin he will actually need. He is going to start with what we discharged him on and monitor his blood glucoses. He is going to find a primary care physician and they will adjust that accordingly. The day of discharge she was feeling great and ready to go. He was educated about the worrisome signs and symptoms come back to emergency room for and was discharged in stable condition. Status at Discharge Functional status at discharge: independent ambulation Time Spent with Patient Time attestation: Total time spent providing and/or coordinating discharge services:38 min
== END 2021-10-09 16:00 | disposition home or self-care (01) | DRG 137 ==
LOC: ANHED 16:39 → ANHIMU 10-05 07:02 → ANH3MEDSUR 10-09 13:06 → ANHIMU 10-10 15:11
PROVIDERS: Internal Medicine Pulmonary Disease; Physician Assistant; Admitting Provider Internal Medicine; Emergency Provider Emergency Medicine; Visit Provider Physician Assistant
DX: U07.1 COVID-19 (principal); J12.82 Pneumonia due to coronavirus disease 2019; J96.01 Acute respiratory failure with hypoxia; E87.1 Hypo-osmolality and hyponatremia; E11.9 Type 2 diabetes mellitus without complications; I10 Essential (primary) hypertension; E66.01 Morbid (severe) obesity due to excess calories; Z68.42 Body mass index [BMI] 45.0-49.9, adult; Z88.0 Allergy status to penicillin
CPT/HCPCS: 36415; 36600; 71045; 71275; 80048; 80053; 80076; 82728; 82805; 82948; 83036; 83615; 83735; 83880; 84295; 84300; 84443; 84450; 84460; 84484; 85025; 85027; 85380; 85610; 86140; 87804; 93970; 94003; 96372; 96374; 99285; A9270; J0360; J1100; J1650; J1815; Q9967

== ENCOUNTER 2022-02-04 18:40 | Emergency (ER) | payer OTHER, SELFPAY ==
--- NOTE | ~2022-02-04 | XR_ITS ---
EXAM: XR knee RT 3V HISTORY: NO INJURY,CHRONIC PAIN IN KNEE,POSTERIOR RT KNEE PAIN X3 WK COMPARISON: 06/08/2013. FINDINGS: Subjectively decreased mineralization. Moderate medial and lateral joint space narrowing. Moderate tricompartmental osteophyte formation. Moderate volume joint fluid. IMPRESSION: No acute osseous finding in the right knee. Moderate tricompartmental right knee osteoarthritis. Mode rate right knee joint effusion. Reviewed, dictated and finalized at location [facility]. IMPRESSION: No acute osseous finding in the right knee. Moderate tricompartmental right kne e osteoarthritis. Moderate right knee joint effusion.
[2022-02-04 18:52] VITALS: BP 176/97; PULSE 85; RESP 20; TEMP 36.7; O2SAT 95
[2022-02-04] MEDS: KETOROLAC 30 MG/ML VIAL (*BKC) IM (20:52)
--- NOTE | 2022-02-04 21:23 | ED.LOWEXIN ---
HPI - Extremity Injury (Lower) General Chief Complaint: Extremity Injury, Lower Stated Complaint: knee pain Time Seen by Provider: 02/04/22 20:45 Source: patient History of Present Illness HPI Narrative: Patient presents with right knee pain. Symptoms began progressively worse for approximately 1 week he saw his primary care doctor initially was given a shot and it did provide relief for 1 day. Symptoms symptoms were getting worse he wanted come the ER for evaluation as he had to leave work today due to his pain. His pain is achy, constant, worse with walking around, no radiation. Related Data Allergies Allergy/AdvReac Type Severity Reaction Status Date / Time Penicillins Allergy Unknown Unknown Verified 02/04/22 18:55 Review of Systems Review of Systems: CONSTITUTIONAL: Denies fever, chills, or sweats. EYES: Denies visual changes, redness, or discharge. ENT: Denies rhinorrhea, congestion, sore throat, or otalgia. CARDIOVASCULAR: Denies chest pain, palpitations, or edema. RESPIRATORY: Denies cough or dyspnea. GASTROINTESTINAL: Denies abdominal pain, nausea, vomiting, or diarrhea. GENITOURINARY: Denies dysuria or hematuria. SKIN: Denies rash or itching. MUSCULOSKELETAL: Denies back pain, joint pain, or myalgia. NEUROLOGIC: Denies headache, numbness, dizziness, or weakness. PSYCHIATRIC: Denies anxiety or depression. All systems reviewed & are unremarkable except as noted in HPI and below PMFSH Past Medical History Medical History Morbid obesity Surgical History Surgical History History of wisdom tooth extraction Family History Family History Mother Hypertension Diabetes mellitus Father Cerebrovascular accident Social History Social History Social History: The patient lives in his own home and [place]. He is not currently employed. He is a former smoker and quit in 2010. No alcohol or illicit substance abuse. He designates his mother, Gale Chinchilla, as his surrogate decision maker. Code status: Full code. Exam Narrative: GENERAL: Well-appearing, well-nourished, and in no acute distress. HEAD: Normocephalic, atraumatic. EYES: PERRLA and EOMI. ENT: Nares clear, no rhinorrhea or epistaxis. Mucous membranes moist. NECK: Supple. No masses. No JVD EXTREMITIES: Normal range of motion. Right knee effusion no erythema or warmth no focal bony tenderness there is diffuse tenderness to the right knee. Joint is stable with valgus and varus stress anterior posterior drawer SKIN: Warm, dry, no rash. NEURO: No focal deficits. Alert and oriented x3. PSYCH: Normal mood and affect. Course Vital Signs Vital signs: Vital Signs Temperature 36.7 C 02/04/22 18:52 Pulse Rate 85 02/04/22 18:52 Respiratory Rate 20 02/04/22 18:52 Blood Pressure 176/97 H 02/04/22 18:52 Pulse Oximetry 95 02/04/22 18:52 Temperature 36.7 C 02/04/22 18:52 Pulse Rate 85 02/04/22 18:52 Respiratory Rate 20 02/04/22 18:52 Blood Pressure 176/97 H 02/04/22 18:52 Pulse Oximetry 95 02/04/22 18:52 MDM - Extremity Injury (Lower) MDM Narrative Medical decision making narrative: H&P as above, vss, pt looks clinically well, exam with diffuse tenderness to the right knee, imaging with effusion and arthritis, additional labs/img considered, symptomatic relief available as needed, patient treated with Toradol on reevaluation pt continues to looks clinically well and reports improvement in symptoms. Suspect osteoarthritis, dns gouty process septic joint, fracture, dislocation, major neurovascular compromise. plan to tx/monitor as op w/ pcm f/u findings/plan discussed with pt, pt agree/comfortable with plan, return precautions given Imaging Data Radiologist's impression: Impressions Knee X-Ray 02/04/22 19
== END 2022-02-04 21:50 | disposition home or self-care (01) ==
PROVIDERS: Emergency Provider Emergency Medicine; PCP Registered Nurse
DX: M25.561 Pain in right knee (principal); E66.01 Morbid (severe) obesity due to excess calories; Z68.43 Body mass index [BMI] 50.0-59.9, adult; Z87.891 Personal history of nicotine dependence
CPT/HCPCS: 73562; 96372; 99283; J1885

== ENCOUNTER 2022-05-06 07:46 | Emergency (ER) | payer OTHER, SELFPAY ==
[2022-05-06 07:48] VITALS: BP 189/108; PULSE 68; RESP 20; TEMP 36.6; O2SAT 98
--- NOTE | 2022-05-06 08:10 | ED.GENADULT ---
HPI - General Adult General Chief complaint: Urogenital-Male Stated complaint: Boil on R testicle Time Seen by Provider: 05/06/22 07:56 History of Present Illness HPI narrative: 43-year-old male presents emergency room secondary swelling to the upper right scrotal region. Is been going on for several days and then it began to have a little bit of drainage from it. However is still very large and firm. Started got concerned and came to the emergency room. He has not seen any other physician for this. He is a diabetic. Denies any chills or fevers. Not the date on his tetanus status. Related Data Allergies Allergy/AdvReac Type Severity Reaction Status Date / Time Penicillins Allergy Unknown Unknown Verified 05/06/22 07:58 Review of Systems Review of Systems: CONSTITUTIONAL: Denies fever, chills, or sweats. EYES: Denies visual changes, redness, or discharge. ENT: Denies rhinorrhea, congestion, sore throat, or otalgia. CARDIOVASCULAR: Denies chest pain, palpitations, or edema. RESPIRATORY: Denies cough or dyspnea. GASTROINTESTINAL: Denies abdominal pain, nausea, vomiting, or diarrhea. GENITOURINARY: Denies dysuria or hematuria. SKIN: Denies rash or itching. MUSCULOSKELETAL: Denies back pain, joint pain, or myalgia. NEUROLOGIC: Denies headache, numbness, or weakness. PSYCHIATRIC: Denies anxiety or depression. GENITAL: No discharge from his penis. Swollen firm area in the right upper scrotal area PMFSH Past Medical History Medical History Diabetes Morbid obesity Surgical History Surgical History History of wisdom tooth extraction Family History Family History Mother Hypertension Diabetes mellitus Father Cerebrovascular accident Social History Social History Social History: The patient lives in his own home and [place]. He is not currently employed. He is a former smoker and quit in 2010. No alcohol or illicit substance abuse. He designates his mother, Gale Chinchilla, as his surrogate decision maker. Code status: Full code. Exam Narrative: APPEARANCE: Well appearing, no pain or distress, well-nourished. Morbidly obese Head normocephalic and atraumatic. EYES: PERRLA/EOMI, conjunctivae very clear. NOSE: Normal with no drainage EARS:TMS clear Diamond Delgado, with good light reflex. THROAT: Pharynx clear, no exudate. NECK: Supple. No adenopathy, no masses. RESPIRATORY: Airway patent, respirations nonlabored. Clear to auscultation bilaterally, no rales, rhonchi, wheezing. CARDIOVASCULAR: Regular rate and rhythm without murmurs, rubs, or gallops. ABDOMINAL: Soft, nontender, nondistended, no hepatosplenomegaly Musculoskeletal: Moves all extremities. Strength/ROM intact, No edema, No calf tenderness. NEURO: Alert. Cranial nerves II through XII intact. Normal gait. Good coordination. Nonfocal examination. SKIN:: Warm, dry. Normal Color PSYCHIATRIC: Normal affect/mood, normal interaction GENITAL: Noted to have approximately 2-1/2 cm firm fluctuant area to the right upper scrotum with no drainage Course Vital Signs Vital signs: Vital Signs Temperature 97.9 F 05/06/22 07:48 Pulse Rate 68 05/06/22 07:48 Respiratory Rate 20 05/06/22 07:48 Blood Pressure 189/108 H 05/06/22 07:48 Pulse Oximetry 98 05/06/22 07:48 Oxygen Delivery Room Air 05/06/22 07:48 Temperature 97.9 F 05/06/22 07:48 Pulse Rate 68 05/06/22 07:48 Respiratory Rate 20 05/06/22 07:48 Blood Pressure 189/108 H 05/06/22 07:48 Pulse Oximetry 98 05/06/22 07:48 Oxygen Delivery Room Air 05/06/22 07:48 Procedures Abscess I/D scrotum: Abcess I&D Additional Comments: Patient abscess to the upper right scrotum approximately 3 cm in diameter. Area was cleaned with Betadine solution. Infiltrated w
[2022-05-06] MEDS: TETANUS,DIPHTHERIA,AC PERTUSSIS ADULT (0.5 ML) BOOSTRIX IM (08:48)
[2022-05-06 09:54] VITALS: BP 146/94; PULSE 72; RESP 18; O2SAT 100
== END 2022-05-06 09:54 | disposition home or self-care (01) ==
PROVIDERS: Emergency Provider Emergency Medicine; PCP Registered Nurse
DX: N49.2 Inflammatory disorders of scrotum (principal); E11.9 Type 2 diabetes mellitus without complications; E66.01 Morbid (severe) obesity due to excess calories; Z23 Encounter for immunization; Z87.891 Personal history of nicotine dependence; Z79.84 Long term (current) use of oral hypoglycemic drugs; Z79.4 Long term (current) use of insulin
CPT/HCPCS: 54700; 90471; 90715; 99283

== ENCOUNTER 2022-05-11 07:48 | Emergency (ER) | payer OTHER, SELFPAY ==
--- NOTE | ~2022-05-11 | US_ITS ---
US scrotum doppler DATE: 05/11/2022 08:53 INDICATION: Right scrotal abscess TECHNIQUE: Real-time and color flow imaging and Doppler analysis of the scrotal contents COMPARISON: None FINDINGS: Right testicle measures 4.2 x 3.1 x 2.4 cm. The left testicle measures 4.1 x 2.3 x 2.7 cm. No testicular mass lesion or torsion is detected. [Right epididymis are unremarkable. No abscess is identified. There is soft tissue thickening in the posterior scrotal area compared to t he left, suggesting cellulitis. IMPRESSION: No testicular mass lesion or torsion Posterior scrotal soft tissue thickening of the right without abscess cavity identified, likely due t o cellulitis. Clinical correlation is advised. Reviewed, dictated and finalized at [facility]. Reviewed, dictated and finalized at location A. IMPRESSION: No testicular mass lesion or torsion Posterior scrotal soft tissue thickening of the right without abscess cavity id entified, likely due to cellulitis. Clinical correlation is advised.
[2022-05-11 07:50] VITALS: BP 180/100; PULSE 80; RESP 16; TEMP 36.4; O2SAT 98
--- NOTE | 2022-05-11 08:05 | PC.NURSE ---
EDP at bedside to assess pt.
--- NOTE | 2022-05-11 08:08 | ED.GENADULT ---
HPI - General Adult General Chief complaint: Urogenital-Male Stated complaint: knot on testicle Time Seen by Provider: 05/11/22 07:55 History of Present Illness HPI narrative: 46-year-old male presenting to the emergency department for evaluation of right-sided scrotal swelling. Patient was evaluated on Friday and had a scrotal abscess drained in the emergency department. Patient was started on antibiotics and did have packing placed. Patient states he removed the packing on as instructed. Patient states that the laceration did heal back up and now he has increased firmness at the right proximal scrotum. Related Data Allergies Allergy/AdvReac Type Severity Reaction Status Date / Time Penicillins Allergy Unknown Unknown Verified 05/06/22 07:58 Review of Systems Review of Systems: CONSTITUTIONAL: Denies fever, chills, or sweats. EYES: Denies visual changes, redness, or discharge. ENT: Denies rhinorrhea, congestion, sore throat, or otalgia. CARDIOVASCULAR: Denies chest pain, palpitations, or edema. RESPIRATORY: Denies cough or dyspnea. GASTROINTESTINAL: Denies abdominal pain, nausea, vomiting, or diarrhea. GENITOURINARY: See HPI SKIN: Denies rash or itching. MUSCULOSKELETAL: Denies back pain, joint pain, or myalgia. NEUROLOGIC: Denies headache, numbness, or weakness. [facility] Past Medical History Medical History Diabetes Morbid obesity Surgical History Surgical History History of wisdom tooth extraction Family History Family History Mother Hypertension Diabetes mellitus Father Cerebrovascular accident Social History Social History Social History: The patient lives in his own home and [place]. He is not currently employed. He is a former smoker and quit in 2010. No alcohol or illicit substance abuse. He designates his mother, Gale Chinchilla, as his surrogate decision maker. Code status: Full code. Exam Narrative: APPEARANCE: Well appearing, no pain, no distress, well-nourished. HEAD: normocephalic, atraumatic. EYES: PERRLA/EOMI, conjunctivae clear. THROAT: Pharynx clear, no exudate. NECK: Supple. No adenopathy, no masses. RESPIRATORY: Airway patent, respirations nonlabored. Clear to auscultation bilaterally, no rales, rhonchi, wheezing. CARDIOVASCULAR: Regular rate and rhythm without murmurs rubs or gallops. Genitourinay: Some firmness to the proximal right scrotum. No significant erythema. No significant tenderness. No fluctuance ABDOMINAL: Soft, nontender, nondistended, normal bowel sounds MUSCULOSKELETAL: Moves all extremities. Strength/ROM intact, No edema, No calf tenderness. NEURO: Alert. Cranial nerves II through XII intact. Grossly intact SKIN: Warm, dry. Normal Color Course Course Emergency Course: Ultrasound showed no evidence of acute abscess. Patient is still currently taking antibiotic. Patient was encouraged to have close follow-up with urology for follow-up. Vital Signs Vital signs: Vital Signs Temperature 97.5 F L 05/11/22 07:50 Pulse Rate 80 05/11/22 07:50 Respiratory Rate 16 05/11/22 07:50 Blood Pressure 180/100 H 05/11/22 07:50 Pulse Oximetry 98 05/11/22 07:50 Oxygen Delivery Room Air 05/11/22 07:50 Temperature 97.5 F L 05/11/22 07:50 Pulse Rate 80 05/11/22 07:50 Respiratory Rate 16 05/11/22 10:22 Blood Pressure 180/100 H 05/11/22 07:50 Pulse Oximetry 98 05/11/22 07:50 Oxygen Delivery Room Air 05/11/22 07:50 Medical Decision Making Vital Signs Vital Signs: Vital Signs Temperature 97.5 F L 05/11/22 07:50 Pulse Rate 80 05/11/22 07:50 Respiratory Rate 16 05/11/22 07:50 Blood Pressure 180/100 H 05/11/22 07:50 Pulse Oximetry 98 05/11/22 07:50 Oxygen Delivery Room Air 05/11/22 07:50 [place]
[2022-05-11] MEDS: ONDANSETRON INJ 4 MG/2 ML VIAL IV PUSH (08:35)
[2022-05-11] MEDS: HYDROmorphone HCL INJ (*CRX) 1 MG/ML SYR IV PUSH (08:35)
--- NOTE | 2022-05-11 08:40 | PC.NURSE ---
Patient off unit to US.
[2022-05-11 09:03] LABS: Basophils Absolute Auto 0.1 K/mm3 (0.0-0.1); Basophils Percent Auto 0.7 % (0.2-1.2); Eosinophils Absolute Auto 0.4 K/mm3 (0-0.3); Eosinophils Percent Auto 3.3 % (0-4.4); Hematocrit 44.6 % (42.0-52.0); Hemoglobin 15.8 g/dL (14.0-18.0); Immature Granulocyte Absolute 0.05 K/mm3 (0.00-0.031); Immature Granulocyte Percent A 0.5 % (0-0.5); Lymphocytes Absolute Auto 3.67 K/mm3 (0.9-3.2); Lymphocytes Percent Auto 34.5 % (18.3-44.2); Mean Corpuscular HGB Conc 35.4 g/dl (32-36); Mean Corpuscular Hemoglobin 30.5 pg (26-34); Mean Corpuscular Volume 86.1 fl (80-100); Mean Platelet Volume 10.2 fl (7.4-10.4); Monocytes Absolute Auto 0.7 K/mm3 (0.1-0.6); Monocytes Percent Auto 6.4 % (2.6-8.5); Neutrophils Absolute Auto 5.8 K/mm3 (1.3-6.7); Neutrophils Percent Auto 54.6 % (45.5-73.1); Platelet Count Result 209 k/mm3 (150-375); Red Blood Count 5.18 M/mm3 (4.6-6.20); Red Cell Distribution Width 12.6 % (11.5-14.5); White Blood Count 10.6 K/mm3 (4.5-10.0)
[2022-05-11 09:07] LABS: Appearance Urine Clear (Clear); Bilirubin Urine Negative (Negative); Color Urine Yellow (Yellow); Glucose Urine UA 1+ mg/dL (Negative); Ketones Urine Negative (Negative); Leukocyte Esterase Ur Negative LEU/UL (Negative); Nitrate Urine Negative (Negative); Protein Urine 2+ mg/dL (Negative); Specific Grav Ur >= 1.030 (1.001-1.035); Urobilinogen Urine 0.2 mg/dL (<2.0)
[2022-05-11 09:12] LABS: Mucus Urine Rare /lpf; RBC Urine 0-2 /hpf (0-2); Squamous Epithelial Cell Urine Occasional /hpf (Few); WBC Urine 0-3 /hpf
[2022-05-11 09:17] LABS: Alanine Aminotransferase 68 U/L (6-50); Albumin Level 4.2 g/dL (3.5-5.1); Alkaline Phosphatase 109 U/L (38-126); Anion Gap 8 mmol/L (8-16); Aspartate Amino Transferase 42 U/L (17-59); Bilirubin,Total 0.3 mg/dL (0.2-1.3); Blood Urea Nitrogen 29 mg/dL (9-20); Calcium 9.7 mg/dL (8.4-10.2); Carbon Dioxide 24 mmol/L (22-30); Chloride 104 mmol/L (98-107); Estimated CRCL calculation 122 ml/min; Estimated Glomerular Filt Rate > 60; Glucose 260 mg/dL (65-110); Potassium 4.9 mmol/L (3.4-5.0); Sodium 136 mmol/L (137-145)
[2022-05-11 09:34] LABS: Add Urine Microscopic? YES; Blood Urine Trace-Intact (Negative)
[2022-05-11 10:22] VITALS: RESP 16
== END 2022-05-11 10:23 | disposition home or self-care (01) ==
PROVIDERS: Emergency Provider Emergency Medicine; PCP Registered Nurse
DX: N50.89 Other specified disorders of the male genital organs (principal); E11.9 Type 2 diabetes mellitus without complications; E66.01 Morbid (severe) obesity due to excess calories; Z68.41 Body mass index [BMI] 40.0-44.9, adult; Z87.891 Personal history of nicotine dependence; Z79.4 Long term (current) use of insulin; Z79.84 Long term (current) use of oral hypoglycemic drugs
CPT/HCPCS: 36415; 76870; 80053; 81001; 85025; 93976; 96374; 96375; 99284; J1170; J2405

== ENCOUNTER 2022-05-13 21:14 | Observation (INO) | payer OTHER, SELFPAY ==
--- NOTE | ~2022-05-13 | CT_ITS ---
EXAMINATION: CT abdomen pelvis w con DATE: 05/13/2022 23:26 INDICATION: Scrotal abscess. TECHNIQUE: Computed tomography (CT) of the abdomen and pelvis was performed without intravenous contr ast. Automated exposure control and iterative reconstruction technique were employed. The dose-length product was 2220.95 mGy-cm. COMPARISON: Scrotal ultrasound dated 05/11/2022 FINDINGS: Lung bases are clear. Heart size is normal. Small amount of atherosclerotic coronary artery calcifica tion. Diffuse hepatic steatosis with subtle scattered liver surface nodularity consistent with cirrho sis. Gallbladder, pancreas and bilateral adrenal glands are normal. Splenomegaly measuring 19.5 cm in maximal length but not particularly increased in size on axial imaging. Kidneys and ureters are norm al with no urolithiasis, hydroureteronephrosis or perinephric/ureteral stranding. Partially decompres sed bladder is normal. Small bowel and appendix are normal. A few scattered colonic diverticula witho ut adjacent inflammatory change to suggest diverticulitis. Small right and moderate-sized left fat-co ntaining inguinal hernias. There is prominent scrotal edema. There is some inflammatory stranding colt rounding a 1.8 x 1.2 cm low-attenuation likely either abscess or region of phlegmonous change at the right side of the base of the penis and scrotum. No extension more proximally along the right spermat ic cord. There is asymmetric mild likely reactive lymphadenopathy at the right groin and right iliac chains. No abscess within the abdomen or pelvis or free intraperitoneal gas or fluid. Moderate thorac olumbar spondylosis. IMPRESSION: 1. Scrotal swelling with 18 x 12 mm low-attenuation either abscess or region of phlegmonous change at the right side of the base of the scrotum and penis. No more extension of abscess or inflammation al shelly the more proximal spermatic cord. 2. Small right and moderate-sized left fat-containing inguinal hernias which remain below the level o f the inflammation. 3. Cirrhosis and diffuse hepatic steatosis. 4. Splenomegaly suggests a secondary portal venous hypertension. Reviewed, dictated and finalized at location A. IMPRESSION: 1. Scrotal swelling with 18 x 12 mm low-attenuation either abscess or region of phlegmonous change at the right side of the base of the scrotum and penis. No more extension of abscess or inflammation along the more proximal spermatic cor d. 2. Small right and moderate-sized left fat-containing inguinal hernias which re main below the level of the inflammation. 3. Cirrhosis and diffuse hepatic steatosis. 4. Splenomegaly suggests a secondary portal venous hypertension.
[2022-05-13 21:18] VITALS: BP 149/82; PULSE 114; RESP 20; TEMP 36.6; O2SAT 96
[2022-05-13] MEDS: SODIUM CHLORIDE 0.9% IV 1,000 ML 999 ML IV CONT (22:27)
[2022-05-13 22:34] LABS: Basophils Absolute Auto 0.1 K/mm3 (0.0-0.1); Basophils Percent Auto 0.5 % (0.2-1.2); Eosinophils Absolute Auto 0.4 K/mm3 (0-0.3); Hematocrit 44.7 % (42.0-52.0); Hemoglobin 15.2 g/dL (14.0-18.0); Immature Granulocyte Absolute 0.07 K/mm3 (0.00-0.031); Immature Granulocyte Percent A 0.5 % (0-0.5); Lymphocytes Percent Auto 28.8 % (18.3-44.2); Mean Corpuscular Hemoglobin 29.9 pg (26-34); Mean Platelet Volume 10.1 fl (7.4-10.4); Neutrophils Absolute Auto 8.4 K/mm3 (1.3-6.7); Neutrophils Percent Auto 60.2 % (45.5-73.1); Platelet Count Result 224 k/mm3 (150-375); Red Blood Count 5.08 M/mm3 (4.6-6.20); Red Cell Distribution Width 12.7 % (11.5-14.5); White Blood Count 13.9 K/mm3 (4.5-10.0)
[2022-05-13 22:47] LABS: INR 1.1; Prothrombin Time 13.3 Seconds (11.1-14.7)
[2022-05-13 22:49] LABS: Partial Thromboplastin Time 35.4 SECONDS (22.3-36.8)
[2022-05-13] MEDS: WATER IVPB (22:52)
[2022-05-13] MEDS: AZTREONAM IVPB (22:52)
[2022-05-13] MEDS: DEXTROSE 5% IVPB (22:52)
[2022-05-13 22:55] LABS: Lactic Acid Reflex 1.4 mmol/L (0.7-2.0)
--- NOTE | 2022-05-13 22:56 | PC.NURSE ---
pt reports unable to provide urine sample at this time, refuses straight urinary catheter.
[2022-05-13 22:57] LABS: Alanine Aminotransferase 63 U/L (6-50); Albumin Level 4.3 g/dL (3.5-5.1); Alkaline Phosphatase 117 U/L (38-126); Anion Gap 8 mmol/L (8-16); Aspartate Amino Transferase 37 U/L (17-59); Bilirubin,Total 0.3 mg/dL (0.2-1.3); Blood Urea Nitrogen 30 mg/dL (9-20); Calcium 9.4 mg/dL (8.4-10.2); Carbon Dioxide 26 mmol/L (22-30); Chloride 101 mmol/L (98-107); Estimated CRCL calculation 97 ml/min; Estimated Glomerular Filt Rate 60; Glucose 271 mg/dL (65-110); Potassium 4.4 mmol/L (3.4-5.0); Sodium 135 mmol/L (137-145)
[2022-05-13 23:00] LABS: CRP 2.7 mg/dL (<1.0)
--- NOTE | 2022-05-13 23:00 | PC.NURSE ---
Assumed care of pt at this time, report taken from nini PETERSON
[2022-05-13 23:31] LABS: Procalcitonin 0.1 ng/mL
[2022-05-13 23:40] LABS: Appearance Urine Clear (Clear); Bilirubin Urine Negative (Negative); Blood Urine 1+ (Negative); Color Urine Yellow (Yellow); Glucose Urine UA 3+ mg/dL (Negative); Ketones Urine Negative (Negative); Leukocyte Esterase Ur Negative LEU/UL (Negative); Nitrate Urine Negative (Negative); Protein Urine 2+ mg/dL (Negative); Specific Grav Ur >= 1.030 (1.001-1.035); Urobilinogen Urine 0.2 mg/dL (<2.0); pH Urine 5.5 (5.0-9.0)
[2022-05-13 23:45] LABS: Mucus Urine Rare /lpf; RBC Urine 0-2 /hpf (0-2); Squamous Epithelial Cell Urine Rare /hpf (Few); WBC Urine 0-3 /hpf
[2022-05-13 23:49] LABS: Add Urine Microscopic? YES
--- NOTE | 2022-05-13 23:50 | ED.GENADULT ---
HPI - General Adult General Chief complaint: Urogenital-Male Stated complaint: testicle problems/abcess draining Time Seen by Provider: 05/13/22 21:43 History of Present Illness HPI narrative: Patient 46-year-old gentleman who presents the emergency department with chief complaint of testicle pain and swelling. The patient reports he had an abscess that was drained several days ago in the emergency department return to the emergency department following that with increased swelling and pain today patient noticed that he had bloody drainage and noticed that his scrotum was significantly swollen. The patient denies fever denies crepitus to the area patient reports he has history of diabetes and has poorly controlled blood sugars Related Data Allergies Allergy/AdvReac Type Severity Reaction Status Date / Time Penicillins Allergy Unknown Unknown Verified 05/13/22 21:43 Review of Systems Review of Systems: A 10 system review of systems was completed on the patient and is negative except for what is stated in the HPI. Nursing and ancillary documentation was reviewed. [facility] Past Medical History Medical History Diabetes Morbid obesity Surgical History Surgical History History of wisdom tooth extraction Family History Family History Mother Hypertension Diabetes mellitus Father Cerebrovascular accident Social History Social History Social History: The patient lives in his own home and [place]. He is not currently employed. He is a former smoker and quit in 2010. No alcohol or illicit substance abuse. He designates his mother, Gale Chinchilla, as his surrogate decision maker. Code status: Full code. Exam Narrative: GENERAL: Well-appearing, well-nourished, and in no acute distress. HEAD: Normocephalic, atraumatic. EYES: PERRLA and EOMI. ENT: Nares clear, no rhinorrhea or epistaxis. Mucous membranes moist. NECK: Supple. CHEST: Clear to auscultation. No respiratory distress. HEART: Regular rate and rhythm. No murmur heard. Normal peripheral pulses. ABDOMEN: Soft, nontender, nondistended, normal active bowel sounds. : The scrotum is significantly swollen there is erythema there is no fluctuance there is no crepitance there is no necrotic tissue. EXTREMITIES: Normal range of motion. No edema. SKIN: Warm, dry, no rash. NEURO: No focal deficits. Alert and oriented x3. PSYCH: Normal mood and affect. Course Course Emergency Course: CT scan showed no evidence of soft tissue gas but does show evidence of scrotal abscess with inflammation extending to the right inguinal canal Vital Signs Vital signs: Vital Signs Temperature 36.6 C 05/13/22 21:18 Pulse Rate 114 H 05/13/22 21:18 Respiratory Rate 20 05/13/22 21:18 Blood Pressure 149/82 H 05/13/22 21:18 Pulse Oximetry 96 05/13/22 21:18 Oxygen Delivery Room Air 05/13/22 21:18 Temperature 36.6 C 05/13/22 21:18 Pulse Rate 86 05/13/22 23:58 Respiratory Rate 18 05/13/22 23:58 Blood Pressure 125/83 05/13/22 23:58 Pulse Oximetry 98 05/13/22 23:58 Oxygen Delivery Room Air 05/13/22 21:18 Medical Decision Making Vital Signs Vital Signs: Vital Signs Temperature 36.6 C 05/13/22 21:18 Pulse Rate 114 H 05/13/22 21:18 Respiratory Rate 20 05/13/22 21:18 Blood Pressure 149/82 H 05/13/22 21:18 Pulse Oximetry 96 05/13/22 21:18 Oxygen Delivery Room Air 05/13/22 21:18 Temperature 36.6 C 05/13/22 21:18 Pulse Rate 86 05/13/22 23:58 Respiratory Rate 18 05/13/22 23:58 Blood Pressure 125/83 05/13/22 23:58 Pulse Oximetry 98 05/13/22 23:58 Oxygen Delivery Room Air 05/13/22 21:18 Lab Data Result diagrams: 05/13/22 22:26 05/13/22 22:26
[2022-05-13 23:58] VITALS: BP 125/83; PULSE 86; RESP 18; O2SAT 98
[2022-05-14] VITALS (19 sets, daily range): BP systolic 132–187; BP diastolic 75–109; PULSE 61–86; RESP 10–19; TEMP 36.1–36.6; O2SAT 91–99; BMI 53.3
--- NOTE | 2022-05-14 01:56 | PM.IMHP ---
H&P: HPI History of Present Illness Date/Time: 05/14/22 01:56 Chief Complaint: scrotal swelling Narrative: This is a 46-year-old male with past medical history significant for morbid obesity, type 2 diabetes mellitus, hypertension. patient presents to the emergency room due to scrotal swelling, denies any fevers, chills, pain, no nausea, no vomiting, no diarrhea, no abdominal pain. patient has been in his usual state of health up until this he had presented to the emergency room few days prior to today however at the time there were no findings. Preliminary workup is significant for WBC 717[address] prior ultrasound of the scrotum showed no abscess however CT of abdomen and pelvis today showed large scrotal abscess. Patient is been admitted for further evaluation management and treatment. Review of Systems Review of Systems: Scrotal swelling Constitutional: Constitutional: Denies chills, Denies fever(s), Denies malaise and Denies night sweats Eyes: Eyes: Denies change in vision ENT: Denies dysphagia, Denies vertigo and Denies odynophagia Cardiovascular: Cardiovascular: Denies chest pain, Denies syncope, Denies irregular heart rhythm and Denies lightheadedness Respiratory: Respiratory: Denies cough Gastrointestinal: Gastrointestinal: Denies abdominal pain, Denies dyspepsia, Denies heartburn, Denies diarrhea, Denies nausea and Denies vomiting Genitourinary: Genitourinary: Reports other ( scrotal swelling) Musculoskeletal: Musculoskeletal: Denies joint swelling and Denies limited range of motion Integumentary/Breasts: Skin/Breast: Denies rash Neurologic: Denies vertigo, Denies dizziness, Denies focal weakness and Denies Sensory deficit (Neuro) Psychiatric: Psychiatric: Reports no additional psychiatric complaints and Reports as per HPI Endocrine: Endocrine: Denies cold intolerance, Denies fatigue, Denies flushing, Denies heat intolerance, Denies polyphagia, Denies polydipsia and Denies palpitations Hematologic/Lymphatic: Hematologic/Lymphatic: Reports no additional hematologic/lymphatic complaints and Reports as per HPI Allergic/Immunologic: Allergic/Immunologic: Reports no additional allergic/immunologic complaints and Reports as per HPI PMF Past Medical History Medical History Diabetes Morbid obesity Surgical History Surgical History History of wisdom tooth extraction Family History Family History Mother Hypertension Diabetes mellitus Father Cerebrovascular accident Social History Social History Social History: The patient lives in his own home and [place]. He is not currently employed. He is a former smoker and quit in 2010. No alcohol or illicit substance abuse. He designates his mother, Gale Chinchilla, as his surrogate decision maker. Code status: Full code. Meds Home Medications and Allergies Home Medications Medication Instructions Recorded Confirmed Type amlodipine 5 mg tablet (Norvasc) 5 mg PO QAM #30 tabs 10/09/21 Rx blood sugar diagnostic (OneTouch #1 banner 10/09/21 Rx Verio test strips) blood-glucose meter (OneTouch #1 banner 10/09/21 Rx Verio Flex Meter) insulin aspart U-100 100 unit/mL 1 unit (0.01 mL) subcut 10/09/21 Rx (3 mL) subcutaneous pen (Novolog DIRECTED #15 mL Flexpen U-100 Insulin aspart) insulin glargine 100 unit/mL (3 25 unit (0.25 mL) subcut QPM #15 mL 10/09/21 Rx mL) subcutaneous pen (Basaglar KwikPen U-100 Insulin) lancets 30 gauge (OneTouch Delica #1 banner 10/09/21 Rx Plus Lancet) metformin 500 mg tablet 500 mg PO BID #60 tabs 10/09/21 Rx pen needle, diabetic 32 gauge x #1 pkg 10/09/21 Rx 5/32 (BD Ultra-Fine Natasha Pen Needle) naproxen 500 mg tablet 500 mg PO BID PRN pain #14 tabs 07
--- NOTE | 2022-05-14 03:40 | ADMGEN ---
This patient, John Chinchilla, was admitted to Medical Room 247-. Patient/family oriented to hospital policies and general routines including ID bracelet, bed and alarms, visiting hours, pain management, procedures, bathroom and other care routines, personal items, smoking policy, room service/diet, and visiting hours. Information on how to activate the Rapid Response Team has been discussed. Patient/Family are encouraged to report perceived risks to care and to ask questions if they do not understand what they are told or what they should do.
[2022-05-14] MEDS: SODIUM CHLORIDE 0.9% IV 1,000 ML 125 ML IV CONT ×2 (03:51→22:05)
[2022-05-14] MEDS: AZTREONAM 2 GM in SODIUM CHLORIDE 0.9% IV 100 ML 200 ML IVPB ×3 (05:15→21:13)
[2022-05-14 06:04] LABS: Glucose Point of Care 229 mg/dl (65-105)
[2022-05-14 07:49] LABS: Glucose Point of Care 283 mg/dl (65-105)
[2022-05-14 09:17] LABS: Hematocrit 42.1 % (42.0-52.0); Hemoglobin 14.8 g/dL (14.0-18.0); Mean Corpuscular HGB Conc 35.2 g/dl (32-36); Mean Corpuscular Hemoglobin 30.3 pg (26-34); Mean Corpuscular Volume 86.1 fl (80-100); Mean Platelet Volume 10.2 fl (7.4-10.4); Platelet Count Result 203 k/mm3 (150-375); Red Blood Count 4.89 M/mm3 (4.6-6.20); Red Cell Distribution Width 12.9 % (11.5-14.5); White Blood Count 10.4 K/mm3 (4.5-10.0)
[2022-05-14 09:35] LABS: Anion Gap 7 mmol/L (8-16); Blood Urea Nitrogen 23 mg/dL (9-20); Calcium 8.9 mg/dL (8.4-10.2); Carbon Dioxide 26 mmol/L (22-30); Chloride 101 mmol/L (98-107); Estimated CRCL calculation 137 ml/min; Estimated Glomerular Filt Rate > 60; Glucose 282 mg/dL (65-110); Magnesium 1.9 mg/dL (1.6-2.3); Potassium 4.6 mmol/L (3.4-5.0); Sodium 134 mmol/L (137-145)
--- NOTE | 2022-05-14 09:55 | WPDURCON ---
Assessment and Plan Assessment and plan (1) Abscess of scrotum: Code(s): N49.2 - Inflammatory disorders of scrotum Status: Acute Assessment and Plan: Given the recent drainage along with significant edema will at least proceed with the evaluation further in the operating room with possible incision and drainage of scrotal abscess. Urology Consult Note HPI Date Seen: 05/14/22 Requesting Physician: Alysia Adams PA-C Primary Care Provider: Lilly Morrison, ESTIMATOR AND [employer]RAFTER SUPERVISOR Consult Narrative Reason for consult: Scrotal abscess Narrative: John Chinchilla is a 46 year old male with multiple trips to the emergency room for right scrotal swelling and possible scrotal abscess. He is seen in the emergency room about a week ago and had a I and D of a small scrotal abscess. This was performed by the emergency room physician. He then presented back later in the week with progressive swelling. Ultrasound of the scrotum at that time revealed no evidence of abscess. He was discharged home on antibiotics and then presented again last night with drainage from his right hemiscrotum with increased swelling. Denied any fevers. White count was 13.9. Lactic acid normal. CT scan was read as having an 8 cm right scrotal abscess. This scan was then reviewed with radiologist this morning and the finding actually is possibly a 1.8 cm area on the right with possible abscess versus phlegmon. Patient remains afebrile. Patient is morbidly obese and has a newly diagnosed diabetic. Review of Systems Review of Systems: All systems reviewed & are unremarkable except as noted in HPI and below PMFSH Past Medical History Medical History Diabetes Morbid obesity Surgical History Surgical History History of wisdom tooth extraction Family History Family History Mother Hypertension Diabetes mellitus Father Cerebrovascular accident Social History Social History Social History: The patient lives in his own home and [place]. He is not currently employed. He is a former smoker and quit in 2010. No alcohol or illicit substance abuse. He designates his mother, Gale Chinchilla, as his surrogate decision maker. Code status: Full code. Smoking status: Former smoker Alcohol intake: never Substance use: current Substance use type: marijuana Other substance usage details: occasionally smoke Spiritual care concerns: No Meds Home Medications and Allergies Home Medications Medication Instructions Recorded Confirmed Type blood sugar diagnostic (OneTouch #1 pkg 10/09/21 05/14/22 Rx Verio test strips) blood-glucose meter (OneTouch #1 pkg 10/09/21 05/14/22 Rx Verio Flex Meter) insulin aspart U-100 100 unit/mL 1 unit (0.01 mL) subcut 10/09/21 05/14/22 Rx (3 mL) subcutaneous pen (Novolog DIRECTED #15 mL Flexpen U-100 Insulin aspart) insulin glargine 100 unit/mL (3 25 unit (0.25 mL) subcut QPM #15 mL 10/09/21 05/14/22 Rx mL) subcutaneous pen (Basaglar KwikPen U-100 Insulin) lancets 30 gauge (OneTouch Delica #1 [facility] 10/09/21 05/14/22 Rx Plus Lancet) metformin 500 mg tablet 500 mg PO BID #60 tabs 10/09/21 05/14/22 Rx pen needle, diabetic 32 gauge x #1 pkg 10/09/21 05/14/22 Rx 5/32 (BD Ultra-Fine Natasha Pen Needle) hydrocodone 5 mg-acetaminophen 325 1 tablet PO Q6H PRN pain #14 tabs 05/11/22 05/14/22 Rx mg tablet amlodipine 5 mg tablet (Norvasc) 20 mg PO QAM 05/14/22 05/14/22 History hydrochlorothiazide 25 mg tablet 25 mg PO DAILY 05/14/22 05/14/22 History lisinopril 40 mg tablet 40 mg PO DAILY 05/14/22 05/14/22 History meloxicam 7.5 mg tablet 7.5 mg PO DAILY 05/14/22 05/14/22 History rosuvastatin 10 mg tablet 10 mg PO HS 05/14/22 05/14/22 History Augie
--- NOTE | 2022-05-14 10:00 | WPDHPUPDATE1 ---
History and Physical Update Update Date/Time: 05/14/22 10:00 History and Physical has been reviewed, including an updated exam of the patient. There are NO changes in the patient's condition. Risks, benefits, and alternatives have been discussed and questions answered. Patient agrees to proceed with procedure. Proceed with I and D of scrotal abscess possible scrotal exploration
--- NOTE | 2022-05-14 10:01 | WPDANESEPPF ---
Anes - Initial Pre Proc Eval Procedure: Operation Date: 05/14/22 12:30 Proposed Procedures p Incision and Debridement Scrotal Abscess - Aris Zafar MD Date/Time: 05/14/22 10:01 Surgeon: Alysia Adams PA-C Pre Op Diagnosis: scrotal abscess, diabetes Patient Data Age: 46 Gender: M Height: 1.83 m Weight: 178.3 kg Last Vital Signs Temp 36.6 C 05/14/22 05:56 Pulse 76 05/14/22 08:00 Resp 14 05/14/22 05:56 BP 147/85 H 05/14/22 05:56 Pulse Ox 98 05/14/22 05:56 O2 Del Method Room Air 05/13/22 21:18 Allergies Allergy/AdvReac Type Severity Reaction Status Date / Time Penicillins Allergy Unknown Unknown Verified 05/13/22 21:43 Home Medications Medication Instructions Recorded Confirmed Type blood sugar diagnostic (OneTouch #1 [facility] 10/09/21 05/14/22 Rx Verio test strips) blood-glucose meter (OneTouch #1 [facility] 10/09/21 05/14/22 Rx Verio Flex Meter) insulin aspart U-100 100 unit/mL 1 unit (0.01 mL) subcut 10/09/21 05/14/22 Rx (3 mL) subcutaneous pen (Novolog DIRECTED #15 mL Flexpen U-100 Insulin aspart) insulin glargine 100 unit/mL (3 25 unit (0.25 mL) subcut QPM #15 mL 10/09/21 05/14/22 Rx mL) subcutaneous pen (Basaglar KwikPen U-100 Insulin) lancets 30 gauge (OneTouch Delica #1 [facility] 10/09/21 05/14/22 Rx Plus Lancet) metformin 500 mg tablet 500 mg PO BID #60 tabs 10/09/21 05/14/22 Rx pen needle, diabetic 32 gauge x #1 [facility] 10/09/21 05/14/22 Rx 5/32 (BD Ultra-Fine Natasha Pen Needle) hydrocodone 5 mg-acetaminophen 325 1 tablet PO Q6H PRN pain #14 tabs 05/11/22 05/14/22 Rx mg tablet amlodipine 5 mg tablet (Norvasc) 20 mg PO QAM 05/14/22 05/14/22 History hydrochlorothiazide 25 mg tablet 25 mg PO DAILY 05/14/22 05/14/22 History lisinopril 40 mg tablet 40 mg PO DAILY 05/14/22 05/14/22 History meloxicam 7.5 mg tablet 7.5 mg PO DAILY 05/14/22 05/14/22 History rosuvastatin 10 mg tablet 10 mg PO HS 05/14/22 05/14/22 History Laboratory Tests 05/13/22 05/13/22 05/13/22 22:26 22:26 22:26 WBC 13.9 K/mm3 H K/mm3 (4.5-10.0) RBC 5.08 M/mm3 M/mm3 (4.6-6.20) Hgb 15.2 g/dL g/dL (14.0-18.0) Hct 44.7 % % (42.0-52.0) MCV 88.0 fl fl (80-100) MCH 29.9 pg pg (26-34) MCHC 34.0 g/dl g/dl (32-36) RDW 12.7 % % (11.5-14.5) Plt Count 224 k/mm3 k/mm3 (150-375) MPV 10.1 fl fl (7.4-10.4) Immature Gran % (Auto) 0.5 % % (0-0.5) Neut % (Auto) 60.2 % % (45.5-73.1) Lymph % (Auto) 28.8 % % (18.3-44.2) [place] % (Auto) 7.0 % % (2.6-8.5) Eos % (Auto) 3.0 % % (0-4.4) Baso % (Auto) 0.5 % % (0.2-1.2) Lymph # (Auto) 4.00 K/mm3 H K/mm3 (0.9-3.2) Calvert # (Auto) 1.0 K/mm3 H K/mm3 (0.1-0.6) Eos # (Auto) 0.4 K/mm3 H K/mm3 (0-0.3) Baso # (Auto) 0.1 K/mm3 K/mm3 (0.0-0.1) Abs Immat Gran (auto) 0.07 K/mm3 H K/mm3 (0.00-0.031) Absolute Neuts (auto) 8.4 K/mm3 H K/mm3 (1.3-6.7) Absolute Nucleated RBC 0.0 K/mm3 K/mm3 (0.0-0.012) Nucleated RBC % 0.0 % % (0.0-0.2) PT INR APTT Sodium 135 mmol/L L mmol/L (137-145) Potassium 4.4 mmol/L mmol/L (3.4-5.0) Chloride 101 mmol/L mmol/L (98-107) Carbon Dioxide 26 mmol/L mmol/L (22-30) Anion Gap 8 mmol/L mmol/L (8-16) BUN 30 mg/dL H mg/dL (9-20) Creatinine 1.30 mg/dL mg/dL (0.7-1.3) Estim Creat Clear Calc 97 ml/min ml/min Estimated GFR 60 (59 - ) Glucose 271 mg/dL H mg/dL (65-110) POC Capillary Glucose Hemoglobin A1c Lactic Acid Calcium 9.4 mg/dL mg/dL (8.4-10.2) Magnesium Total Bilirubin 0.3 mg/dL mg/dL (0.2-1.3) AST 37 U/L U/L (17-59) ALT
[2022-05-14 11:30] LABS: Glucose Point of Care 269 mg/dl (65-105)
--- NOTE | 2022-05-14 13:47 | PM.IMPN ---
Progress Note: A&P Assessment and Plan (1) Abscess of scrotum: Code(s): N49.2 - Inflammatory disorders of scrotum Status: Acute Assessment and Plan: Presented with bloody scrotal drainage Underwent I&D of small scrotal abscess on 05/06/2022 and was taking Bactrim Returned on 05/13 with increased scrotal edema and bloody drainage CT of the abdomen/pelvis shows scrotal swelling with 18 x 12 mm low-attenuation abscess or phlegmon at the right side of the base of the scrotum Appreciate urology consultation Planning for incision and drainage of right scrotal abscess in the OR today Initial antibiotic regimen consist of vancomycin, imipenem, and aztreonam. Will continue this regimen while awaiting surgical findings and tailor based on intervention. Consider consult to ID PharmD for assistance with antibiotic management Blood cultures are pending Patient remains afebrile. White blood cell count improving (2) Type 2 diabetes mellitus: Code(s): E11.9 - Type 2 diabetes mellitus without complications Status: Acute Assessment and Plan: Patient states last A1c was 9. Blood sugars have been elevated this hospital stay, typically around 250 updated A1c is pending continue Accu-Cheks, moderate dose sliding scale insulin, and hypoglycemic protocol resume home Lantus with 20% dose reduction hold home metformin monitor glucose trends and adjust insulin regimen as needed (3) Essential hypertension: Code(s): I10 - Essential (primary) hypertension Status: Acute Assessment and Plan: blood pressures reviewed and have been slightly elevated. Last BP 157/89 resume home antihypertensives: lisinopril, hydrochlorothiazide, amlodipine monitor BP trends (4) Hepatic steatosis: Code(s): K76.0 - Fatty (change of) liver, not elsewhere classified Status: Acute Assessment and Plan: CT abdomen/ pelvis shows cirrhosis with diffuse hepatic steatosis patient denies alcohol use laboratory workup unremarkable, normal platelet count, normal INR, normal liver enzymes implement dietary and lifestyle modifications will need close follow-up with PCP Subjective Date/time seen: 05/14/22 13:47 Interval history: Date of service: 05/14/2022 John Chinchilla is a 46-year-old male with a history of type 2 diabetes mellitus, hypertension, hyperlipidemia, obesity who is seen in follow-up for scrotal abscess. He is doing okay today. At this time he has no pain whatsoever. He is able to walk around comfortably and this is not exacerbated his pain. He feels his swelling is unchanged. he states his scrotum feels full. He has had a small amount of bloody drainage today. He denies nausea, vomiting, fever, chills. He has been NPO today in preparation for surgery this afternoon. He denies shortness of breath, cough, chest pain, palpitations, dizziness, lightheadedness, weakness. States he monitors his blood sugars at home and they are typically 150-250. Review of Systems Review of Systems: All systems reviewed & are unremarkable except as noted in HPI and below Exam Narrative: General: Obese, well-appearing 46-year-old male, sitting up in bed, comfortable, NARD Neuro: awake, alert and oriented x4, speech clear, no focal neuro deficits noted HEENMT: normocephalic, atraumatic, EOMI, sclerae anicteric Respiratory: clear to auscultation bilaterally, nonlabored breathing Cardio: regular rate, regular rhythm with S1-S2 Abdomen: protuberant, normoactive bowel sounds, soft, nontender to palpation : scrotum is edematous and erythematous, no obvious drainage on brief inspection, right side of scrotum is firm Extremities: no edema, erythema, or tenderness to palpation, DP pulses 2+ bilaterally Skin: no rashes or lesions, warm and dry Psych: appropriate mood and affect, judgment and insight intact Objective Data Vital Signs Vital Signs: Vital Signs - 24 hr
[2022-05-14] MEDS: LACTATED RINGERS 1,000 ML 30 ML IV CONT (15:11)
--- NOTE | 2022-05-14 15:14 | W.PM.PROC2 ---
Procedure Note - Detailed Date of Procedure 05/14/22 Pre-op Diagnosis scrotal abscess, diabetes Post-op Diagnosis Same Procedure Performed Incision and drainage of scrotal abscess Surgeon Aris Zafar MD Anesthesia General Description of Procedure Patient is taken the operative suite correctly identified. Once anesthesia was obtained he was prepped draped usual sterile fashion. The lateral scrotal area superiorly was indurated with some drainage from a little pinhole. We incised this for approximately 2 cm. Some purulence was extruded and we cultured this. Using my finger bluntly dilated a pocket which dissected medially. We copiously irrigated this area. We then placed iodoform gauze into this area. Skin edges were fulgurated and it bled nicely. Patient is taken recovery stable condition. He will require b.i.d. dressing changes starting tomorrow. Drains No Packing Yes Pathology Yes Complications No immediate complications Condition Stable Disposition PACU
[2022-05-14 15:38] LABS: Glucose Point of Care 196 mg/dl (65-105)
[2022-05-14] MEDS: fentaNYL CITRATE INJ (*CRX) 100 MCG/2 ML VIAL 25 MCG IV PUSH ×3 (15:53→16:14)
[2022-05-14] MEDS: lisinopriL 20 MG TABLET 40 MG PO (17:10)
[2022-05-14 17:23] LABS: Glucose Point of Care 185 mg/dl (65-105)
[2022-05-14 19:38] LABS: Hemoglobin A1C 9.7 % (<5.7)
[2022-05-14] MEDS: INSULIN GLARGINE (*BKC) 100 UNITS/ML 20 UNITS SUB-Q (20:35)
[2022-05-14 20:45] LABS: Glucose Point of Care 237 mg/dl (65-105)
[2022-05-14 23:44] LABS: Vancomycin Trough 13.9 ug/mL (10.0-20.0)
[2022-05-15 00:24] LABS: Glucose Point of Care 182 mg/dl (65-105)
[2022-05-15 01:14] VITALS: BP 152/89; PULSE 89; RESP 14; TEMP 36.4; O2SAT 95
[2022-05-15] MEDS: AZTREONAM 2 GM in SODIUM CHLORIDE 0.9% IV 100 ML 200 ML IVPB (05:27)
[2022-05-15 05:48] LABS: Glucose Point of Care 212 mg/dl (65-105)
[2022-05-15 06:03] LABS: Hematocrit 43.6 % (42.0-52.0); Hemoglobin 15.3 g/dL (14.0-18.0); Mean Corpuscular HGB Conc 35.1 g/dl (32-36); Mean Corpuscular Hemoglobin 30.3 pg (26-34); Mean Corpuscular Volume 86.3 fl (80-100); Mean Platelet Volume 10.1 fl (7.4-10.4); Platelet Count Result 225 k/mm3 (150-375); Red Blood Count 5.05 M/mm3 (4.6-6.20); Red Cell Distribution Width 12.7 % (11.5-14.5); White Blood Count 11.6 K/mm3 (4.5-10.0)
[2022-05-15 06:09] VITALS: BP 167/96; PULSE 74; RESP 14; TEMP 36.4; O2SAT 93
[2022-05-15 06:21] LABS: Anion Gap 7 mmol/L (8-16); Blood Urea Nitrogen 17 mg/dL (9-20); Carbon Dioxide 28 mmol/L (22-30); Chloride 101 mmol/L (98-107); Estimated CRCL calculation 169 ml/min; Estimated Glomerular Filt Rate > 60; Glucose 217 mg/dL (65-110); Potassium 4.4 mmol/L (3.4-5.0); Sodium 136 mmol/L (137-145)
[2022-05-15 07:54] LABS: Glucose Point of Care 226 mg/dl (65-105)
[2022-05-15] MEDS: INSULIN ASPART (*BKC) 100 UNITS/ML SUB-Q ×2 (08:04→11:51)
[2022-05-15] MEDS: lisinopriL 20 MG TABLET 40 MG PO (08:06)
[2022-05-15] MEDS: hydroCHLOROthiazide 25 MG TABLET PO (08:06)
[2022-05-15] MEDS: amLODIPine BESYLATE 5 MG TABLET 10 MG PO (09:52)
--- NOTE | 2022-05-15 10:04 | WPDUROPN2 ---
Progress Note: A&P Assessment and Plan (1) Abscess of scrotum: Code(s): N49.2 - Inflammatory disorders of scrotum Status: Acute Assessment and Plan: I changed his dressing today. I removed his Iodoform packing and dry gauze dressing without difficulty, the patient tolerated well. I then used NS 0.9% dampened gauze 4x4's to pack his inicsion and placed a clean gauze dressing over the top of the packing. He was instructed to do this daily at home until unable to pack, then just place a dry dressing over incision until it closes on it's own. Remove packing and dressing prior to shower, then wash area with soap and water daily when showering. OK to discharge home today with wet to dry dressing changes daily and f/u in one week. Time Spent With Patient Time with patient: 15 - 25 minutes Subjective Subjective Date/Time Seen: 05/15/22 10:04 Incision and drainage of scrotal abscess Patient doing well, pain is tolerable. Post Op day: 1 Review of Systems Cardiovascular: Cardiovascular: Denies chest pain Respiratory: Respiratory: Reports no additional respiratory complaints Gastrointestinal: Gastrointestinal: Denies abdominal pain, Denies nausea and Denies vomiting Genitourinary: Genitourinary: Denies hematuria, Reports genital pain, Denies dysuria, Denies flank pain, Reports scrotal swelling, Denies urinary frequency and Denies urinary hesitancy Exam Const: General: cooperative Resp: Effort & Inspection: normal respiratory effort Cardio: Rate: regular rate GI: Inspection: Pannus present GI Palp: Yes Soft to palpation and No Tenderness to palpation present (GI) : General: Yes no CVA tenderness Scrotum: edematous bilateral, erythematous (incision is dry and pink, bandage has purulent and bloody drainage) on the right and scrotal swelling bilateral Extrem: Right lower extremity: no edema Left lower extremity: no edema Objective Data Vital Signs Vital Signs: Vital Signs - 24 hr 05/14/22 10:50 05/14/22 15:11 05/14/22 15:25 Temperature 97.9 F 96.9 F L Pulse Rate 65 77 79 Respiratory Rate 16 10 L 15 Blood Pressure 157/89 H 147/93 H 161/84 H Pulse Oximetry 91 97 98 Oxygen Delivery Simple Face Mask Simple Face Mask Oxygen Flow Rate 10 10 05/14/22 15:40 05/14/22 15:55 05/14/22 16:05 Temperature Pulse Rate 79 82 80 Respiratory Rate 17 16 17 Blood Pressure 178/109 H 187/107 H 181/94 H Pulse Oximetry 99 98 98 Oxygen Delivery Room Air Room Air Oxygen Flow Rate 10 05/14/22 16:20 05/14/22 16:35 05/14/22 12:00 Temperature Pulse Rate 83 85 61 Respiratory Rate 19 15 Blood Pressure 169/89 H 178/95 H Pulse Oximetry 95 95 Oxygen Delivery Room Air Room Air Oxygen Flow Rate 05/14/22 17:00 05/14/22 17:30 05/14/22 19:30 Temperature 97.5 F L 97.3 F L 97.5 F L Pulse Rate 83 85 86 Respiratory Rate 18 16 16 Blood Pressure 157/91 H 160/93 H 154/86 H Pulse Oximetry 98 96 95 Oxygen Delivery Oxygen Flow Rate 05/14/22 20:00 05/14/22 23:19 05/15/22 01:14 Temperature 97.7 F 97.6 F Pulse Rate 73 89 Respiratory Rate 16 14 Blood Pressure 149/75 H 152/89 H Pulse Oximetry 99 95 Oxygen Delivery Room Air Oxygen Flow Rate 05/15/22 06:09 05/15/22 08:10 Temperature 97.6 F Pulse Rate 74 Respiratory Rate 14 Blood Pressure 167/96 H Pulse Oximetry 93 Oxygen Delivery Room Air Oxygen Flow Rate Intake/Output Intake/Output: Intake & Output 05/12/22 05/13/22 05/14/22 05/15/22 23:59 23:59 23:59 23:59 Intake Total 1050 3100 1440 Balance 1050 3100 1440 Meds/Results Medications: Active Medications Generic Name Dose Route Start Last Admin Trade Name Freq PRN Reason Stop Dose Admin Amlodipine Besylate 10 mg 05/15/22 09:00 05/15/22 09:52 Amlodipine Besylate 5 Mg Tablet PO 10 mg QAM ALVA Administration Dextrose 12.5 gm 05/14/22 01:53 Dextrose 50% 25 Gm/50 Ml Syringe IV PUSH PRN PRN Hypoglycemia Protocol Fe
--- NOTE | 2022-05-15 11:35 | WPDANESPN ---
Anes - Prog Note Post-Op Date/Time: 05/15/22 11:35 Vital Signs: Last Vital Signs Temp 36.4 C 05/15/22 06:09 Pulse 74 05/15/22 06:09 Resp 14 05/15/22 06:09 BP 167/96 H 05/15/22 06:09 Pulse Ox 93 05/15/22 06:09 O2 Del Method Room Air 05/15/22 08:10 O2 Flow Rate 10 05/14/22 15:40 Pain Score (VAS): 0 I/O: Intake & Output 05/14/22 05/15/22 05/15/22 23:59 07:59 15:59 Intake Total 800 1200 240 Balance 800 1200 240 Laboratory Tests 05/15/22 05:25 05/15/22 05:25 05/14/22 05/14/22 05/14/22 08:59 15:35 17:15 WBC RBC Hgb Hct MCV MCH MCHC RDW Plt Count MPV Sodium Potassium Chloride Carbon Dioxide Anion Gap BUN Creatinine Estim Creat Clear Calc Estimated GFR Glucose POC Capillary Glucose 196 H 185 H Hemoglobin A1c 9.7 H Calcium Vancomycin Trough 05/14/22 05/14/22 05/15/22 20:32 22:40 00:16 WBC RBC Hgb Hct MCV MCH MCHC RDW Plt Count MPV Sodium Potassium Chloride Carbon Dioxide Anion Gap BUN Creatinine Estim Creat Clear Calc Estimated GFR Glucose POC Capillary Glucose 237 H 182 H Hemoglobin A1c Calcium Vancomycin Trough 13.9 05/15/22 05/15/22 05/15/22 05:25 05:25 05:34 WBC 11.6 H RBC 5.05 Hgb 15.3 Hct 43.6 MCV 86.3 MCH 30.3 MCHC 35.1 RDW 12.7 Plt Count 225 MPV 10.1 Sodium 136 L Potassium 4.4 Chloride 101 Carbon Dioxide 28 Anion Gap 7 L BUN 17 Creatinine 0.80 Estim Creat Clear Calc 169 Estimated GFR > 60 Glucose 217 H POC Capillary Glucose 212 H Hemoglobin A1c Calcium 9.0 Vancomycin Trough 05/15/22 07:51 WBC RBC Hgb Hct MCV MCH MCHC RDW Plt Count MPV Sodium Potassium Chloride Carbon Dioxide Anion Gap BUN Creatinine Estim Creat Clear Calc Estimated GFR Glucose POC Capillary Glucose 226 H Hemoglobin A1c Calcium Vancomycin Trough Microbiology 05/14/22 14:57 Abscess Anaerobic Culture - Preliminary 05/13/22 22:26 Blood Blood Culture - Preliminary 05/13/22 22:26 Blood Blood Culture - Preliminary Patient Feedback: Patient satisfied with anesthetic care.
[2022-05-15 11:51] LABS: Glucose Point of Care 235 mg/dl (65-105)
--- NOTE | 2022-05-15 13:39 | P.DS_ITS ---
DS: Admitting Diagnosis Discharge Date 05/15/2022 Admitting Diagnosis Scrotum abscess DS: Discharge Diagnosis Discharge Diagnosis (1) Abscess of scrotum: Code(s): N49.2 - Inflammatory disorders of scrotum Status: Acute Assessment and Plan: Presented with bloody scrotal drainage * Underwent bedside I&D of small scrotal abscess on 05/06/2022 and was taking Bactrim consistently as prescribed * Returned on 05/13 with increased scrotal edema and bloody drainage * CT of the abdomen/pelvis showed scrotal swelling with 18 x 12 mm low- attenuation abscess or phlegmon at the right side of the base of the scrotum * He was seen in consultation by Urology * Underwent incision and drainage of scrotal abscess in the OR on 05/14/[address] Zafar. * Initially treated with antibiotic regimen of vancomycin, imipenem, and aztreonam. Discussed with ID PharmD. Aztreonam discontinued. * Patient was significant improvement postoperatively. Remained afebrile and overall improvement of mild leukocytosis. * Discharged on Keflex 500 mg t.i.d. for 14 days per Urology recommendations with cultures pending at time of discharge * Blood cultures negative to date *at time of dictation, preliminary abscess cultures with light growth of group B Streptococcus isolated. Continue with Keflex. Final abscess cultures and blood cultures will be monitored (2) Type 2 diabetes mellitus: Code(s): E11.9 - Type 2 diabetes mellitus without complications Status: Acute Assessment and Plan: A1c is 9.7. Blood sugars elevated during admission ranging from 180-250. * Manage your hospital stay with Accu-Cheks, sliding scale insulin, hypoglycemic protocol * Continue home regimen of Lantus 25 units qHS and sliding scale NovoLog * Continue home metformin * Encouraged to monitor glucose regularly at home to achieve tighter glycemic control * Diabetic diet (3) Essential hypertension: Code(s): I10 - Essential (primary) hypertension Status: Acute Assessment and Plan: Blood pressures reviewed and were elevated above target, may have been worsened due to pain * Continue home antihypertensives: lisinopril, hydrochlorothiazide, amlodipine * Follow-up with PCP for blood pressure check (4) Hepatic steatosis: Code(s): K76.0 - Fatty (change of) liver, not elsewhere classified Status: Acute Assessment and Plan: CT abdomen/ pelvis showed cirrhosis with diffuse hepatic steatosis * patient denies alcohol use * laboratory workup unremarkable, normal platelet count, normal INR, normal liver enzymes * implement dietary and lifestyle modifications * will need close follow-up with PCP DS: Summary Hospital Course Hospital Course: Date of admission: 05/13/2022 Date of discharge: 05/15/2022 John Chinchilla is a 46-year-old male with a history of type 2 diabetes mellitus, hypertension, hyperlipidemia, obesity?who presented to the emergency department on 05/13/2022 with complaints of scrotal pain and swelling after undergoing bedside I and D on 05/06/2022. He had been taking Bactrim, however his symptoms did not improve and he began having bloody drainage from the scrotum. On presentation to the ED, he was afebrile, vital signs stable, white blood cell count 13.9, CRP 2.7, and CT of the abdomen/pelvis showed scrotal swelling with abscess or phlegmonous changes at the right side scrotal base. He was admitted to the hospitalist service for further evaluation management was seen in consultation by Urology. Please see above for further details. He had symptomati
--- NOTE | 2022-05-15 13:39 | PM.DS ---
DS: Admitting Diagnosis Discharge Date 05/15/2022 Admitting Diagnosis Scrotum abscess DS: Discharge Diagnosis Discharge Diagnosis (1) Abscess of scrotum: Code(s): N49.2 - Inflammatory disorders of scrotum Status: Acute Assessment and Plan: Presented with bloody scrotal drainage Underwent bedside I&D of small scrotal abscess on 05/06/2022 and was taking Bactrim consistently as prescribed Returned on 05/13 with increased scrotal edema and bloody drainage CT of the abdomen/pelvis showed scrotal swelling with 18 x 12 mm low-attenuation abscess or phlegmon at the right side of the base of the scrotum He was seen in consultation by Urology Underwent incision and drainage of scrotal abscess in the OR on 05/14/[address] Zafar. Initially treated with antibiotic regimen of vancomycin, imipenem, and aztreonam. Discussed with ID PharmD. Aztreonam discontinued. Patient was significant improvement postoperatively. Remained afebrile and overall improvement of mild leukocytosis. Discharged on Keflex 500 mg t.i.d. for 14 days per Urology recommendations with cultures pending at time of discharge Blood cultures negative to date *at time of dictation, preliminary abscess cultures with light growth of group B Streptococcus isolated. Continue with Keflex. Final abscess cultures and blood cultures will be monitored (2) Type 2 diabetes mellitus: Code(s): E11.9 - Type 2 diabetes mellitus without complications Status: Acute Assessment and Plan: A1c is 9.7. Blood sugars elevated during admission ranging from 180-250. Manage your hospital stay with Accu-Cheks, sliding scale insulin, hypoglycemic protocol Continue home regimen of Lantus 25 units qHS and sliding scale NovoLog Continue home metformin Encouraged to monitor glucose regularly at home to achieve tighter glycemic control Diabetic diet (3) Essential hypertension: Code(s): I10 - Essential (primary) hypertension Status: Acute Assessment and Plan: Blood pressures reviewed and were elevated above target, may have been worsened due to pain Continue home antihypertensives: lisinopril, hydrochlorothiazide, amlodipine Follow-up with PCP for blood pressure check (4) Hepatic steatosis: Code(s): K76.0 - Fatty (change of) liver, not elsewhere classified Status: Acute Assessment and Plan: CT abdomen/ pelvis showed cirrhosis with diffuse hepatic steatosis patient denies alcohol use laboratory workup unremarkable, normal platelet count, normal INR, normal liver enzymes implement dietary and lifestyle modifications will need close follow-up with PCP DS: Summary Hospital Course Hospital Course: Date of admission: 05/13/2022 Date of discharge: 05/15/2022 John Chinchilla is a 46-year-old male with a history of type 2 diabetes mellitus, hypertension, hyperlipidemia, obesity?who presented to the emergency department on 05/13/2022 with complaints of scrotal pain and swelling after undergoing bedside I and D on 05/06/2022. He had been taking Bactrim, however his symptoms did not improve and he began having bloody drainage from the scrotum. On presentation to the ED, he was afebrile, vital signs stable, white blood cell count 13.9, CRP 2.7, and CT of the abdomen/pelvis showed scrotal swelling with abscess or phlegmonous changes at the right side scrotal base. He was admitted to the hospitalist service for further evaluation management was seen in consultation by Urology. Please see above for further details. He had symptomatic improvement following I&D on 05/14/2022. He was feeling much better and remained afebrile, no concerns for sepsis. Good source control was obtained following I and D and he will continue p.o. Keflex for 2 weeks per Urology recommendations. He will need to follow-up with urology as an outpatient. Given his overall improvement, he was determined to no longer require inpatient care a
== END 2022-05-15 14:30 | disposition home or self-care (01) ==
LOC: ANHED 05-14 00:59 → ANH2MED 05-14 02:30
PROVIDERS: Urology; Admitting Provider Internal Medicine; Emergency Provider Emergency Medicine; PCP Registered Nurse; Visit Provider Physician Assistant
PROC: (CPT 54700; principal; 2022-05-14 12:30)
DX: N49.2 Inflammatory disorders of scrotum (principal); E11.9 Type 2 diabetes mellitus without complications; I10 Essential (primary) hypertension; K76.0 Fatty (change of) liver, not elsewhere classified; E78.5 Hyperlipidemia, unspecified; E66.01 Morbid (severe) obesity due to excess calories; Z68.43 Body mass index [BMI] 50.0-59.9, adult; Z98.890 Other specified postprocedural states; K40.20 Bilateral inguinal hernia, without obstruction or gangrene, not specified as recurrent; K74.60 Unspecified cirrhosis of liver; Z79.1 Long term (current) use of non-steroidal anti-inflammatories (NSAID); Z79.891 Long term (current) use of opiate analgesic; Z79.84 Long term (current) use of oral hypoglycemic drugs; Z79.4 Long term (current) use of insulin; R16.1 Splenomegaly, not elsewhere classified; F12.90 Cannabis use, unspecified, uncomplicated; Z82.49 Family history of ischemic heart disease and other diseases of the circulatory system; Z83.3 Family history of diabetes mellitus; Z87.891 Personal history of nicotine dependence; Z79.899 Other long term (current) drug therapy
CPT/HCPCS: 55100; 36415; 74177; 80048; 80053; 80202; 81001; 82948; 83036; 83605; 83735; 84145; 85025; 85027; 85610; 85730; 86140; 87040; 87070; 87075; 87077; 87205; 96361; 96365; 96366; 96367; 96375; 99285; A9270; G0378; G0379; J0743; J1815; J2250; J2704; J3010; J3370; J7030; J7060; J7120; Q9967

== ENCOUNTER 2022-12-05 16:04 | Emergency (ER) | payer OTHER, SELFPAY ==
--- NOTE | ~2022-12-05 | US_ITS ---
EXAMINATION: US venous doppler [facility] DATE: 12/05/2022 18:56 INDICATION: Left lower limb pain and swelling TECHNIQUE: Grayscale ultrasound images without and with compression and Doppler ultrasound images of the left lower extremity veins were obtained. COMPARISON: None. FINDINGS: The visualized portions of left common femoral vein, profunda (deep) femoral vein, femoral vein, popl iteal vein, peroneal veins, posterior tibial veins, gastrocnemius vein and greater saphenous vein out flow are patent. IMPRESSION: 1. No deep venous thrombosis in the left lower limb. Reviewed, dictated and finalized at location [facility]
[2022-12-05 16:36] VITALS: BP 152/90; PULSE 87; RESP 20; TEMP 36.9; O2SAT 97
[2022-12-05 18:18] VITALS: BP 166/110; PULSE 80; RESP 18; O2SAT 100
[2022-12-05] MEDS: IBUPROFEN 600 MG TABLET PO (19:13)
--- NOTE | 2022-12-05 19:34 | ED.EXTPRO ---
HPI - Extremity Problem General Chief complaint: Extremity Problem,Nontraumatic Stated complaint: possibly pulled calf muscle Time Seen by Provider: 12/05/22 18:17 Source: RN notes reviewed History of Present Illness HPI Narrative: Patient presents emergency department from home for left medial calf pain. Patient states she noted the Pain this afternoon following work as he was getting out of his car he states the pain was over the medial calf and did seem to hurt worse when he was moving his leg he denies any known trauma or injury states the pain does not go into his knee or into his ankle he denies any numbness or tingling he denies taking any medication for the symptoms Related Data Home Medications Medication Instructions Recorded Confirmed amlodipine 5 mg tablet (Norvasc) 20 mg PO QAM 05/14/22 05/14/22 hydrochlorothiazide 25 mg tablet 25 mg PO DAILY 05/14/22 05/14/22 lisinopril 40 mg tablet 40 mg PO DAILY 05/14/22 05/14/22 meloxicam 7.5 mg tablet 7.5 mg PO DAILY 05/14/22 05/14/22 rosuvastatin 10 mg tablet 10 mg PO HS 05/14/22 05/14/22 Allergies Allergy/AdvReac Type Severity Reaction Status Date / Time Penicillins Allergy Unknown Unknown Verified 12/05/22 18:18 Review of Systems Review of Systems: Gen.: Denies fevers or chills Musculoskeletal: See HPI Neuro: Denies numbness, tingling, weakness Skin: Denies rash Endo: Reports history of diabetes mellitus PMFSH Past Medical History Medical History Abscess of scrotum Essential hypertension Hyperglycemia Morbid obesity Morbid obesity with BMI of 50.0-59.9, adult Type 2 diabetes mellitus Surgical History Surgical History History of wisdom tooth extraction Family History Family History Mother Hypertension Diabetes mellitus Father Cerebrovascular accident Social History Social History Social History: The patient lives in his own home and [place]. He is not currently employed. He is a former smoker and quit in 2010. No alcohol or illicit substance abuse. He designates his mother, Gale Chinchilla, as his surrogate decision maker. Code status: Full code. Smoking status: Former smoker Alcohol intake: never Substance use: current Substance use type: marijuana Other substance usage details: occasionally smoke Spiritual care concerns: No Exam Narrative: APPEARANCE: No acute distress, nontoxic, resting in bed Eyes: EOMI HEENT: Normocephalic, atraumatic, RESPIRATORY: No respiratory distress MUSCULOSKELETAl: Tender palpation of the left medial calf there is no swelling or ecchymosis there is no tenderness of the knee or ankle full motion of both 5 out of 5 dorsiflexion and plantarflexion of the left ankle dorsalis pedis pulse 2+ neurovascular intact NEURO: Awake and alert. Following commands, speech normal, no focal deficits SKIN:: Warm, dry. Normal Color no rash or lesions Course Course Emergency Course: Discussed with patient results of workup and diagnosis. Discussed need for follow-up with primary care, proper use of medication, and reasons to return to the emergency department. Patient understands and agrees to current treatment plan Vital Signs Vital signs: Vital Signs Temperature 98.5 F 12/05/22 16:36 Pulse Rate 87 12/05/22 16:36 Respiratory Rate 20 12/05/22 16:36 Blood Pressure 152/90 H 12/05/22 16:36 Pulse Oximetry 97 12/05/22 16:36 Oxygen Delivery Room Air 12/05/22 16:36 Temperature 98.5 F 12/05/22 16:36 Pulse Rate 80 12/05/22 18:18 Respiratory Rate 18 12/05/22 18:18 Blood Pressure 166/110 H 12/05/22 18:18 Pulse Oximetry 100 12/05/22 18:18 Oxygen Delivery Room Air 12/05/22 16:36 MDM - Extremity (Nontraumatic) MDM Narrative Medical decision making
--- NOTE | 2022-12-05 19:55 | PC.NURSE ---
nader wrap applied to left calf per order.
== END 2022-12-05 19:58 | disposition home or self-care (01) ==
PROVIDERS: Emergency Provider Emergency Medicine; PCP Registered Nurse
DX: S86.912A Strain of unspecified muscle(s) and tendon(s) at lower leg level, left leg, initial encounter (principal); I10 Essential (primary) hypertension; E11.9 Type 2 diabetes mellitus without complications; E66.01 Morbid (severe) obesity due to excess calories; Z87.891 Personal history of nicotine dependence; Z79.84 Long term (current) use of oral hypoglycemic drugs; Z79.4 Long term (current) use of insulin; X58.XXXA Exposure to other specified factors, initial encounter
CPT/HCPCS: 93971; 99284; A9270

== ENCOUNTER 2023-05-15 14:25 | Emergency (ER) | payer OTHER, SELFPAY ==
--- NOTE | ~2023-05-15 | XR_ITS ---
XR knee LT min 4V DATE: 05/15/2023 14:53 INDICATION: Fall at work. Lateral and posterior knee pain. TECHNIQUE: 4 views COMPARISON: 01/13/2015 left knee FINDINGS: There is tricompartment osteoarthritis with prominent particular spurring at all 3 compartm ents, moderate loss of height particularly at lateral compartment. No fracture or dislocation or joint effusion. No periosteal reaction or bone destruction. No radiopaq ue intra-articular loose body or chondrocalcinosis. IMPRESSION: Tricompartment osteoarthritis, increased in severity since 01/13/2015 particularly at the patellofemoral compartment Reviewed, dictated and finalized at location [facility]. IMPRESSION: Tricompartment osteoarthritis, increased in severity since 5 particularly at the patellofemoral compartment
--- NOTE | 2023-05-15 14:37 | ED.LOWEXIN ---
HPI - Extremity Injury (Lower) General Chief Complaint: Extremity Injury, Lower Stated Complaint: Left Knee Pain Time Seen by Provider: 05/15/23 14:40 Source: patient Mode of arrival: ambulatory Limitations: no limitations History of Present Illness HPI Narrative: John is a 47-year-old male patient presenting to clinic today with complaints of left posterior knee pain. He works in a [employer] and reports he was at cleaning out of [place] when he slipped and twisted his left knee. Reports tightness and left proximal posterior knee pain. Related Data Home Medications Medication Instructions Recorded Confirmed hydrochlorothiazide 25 mg tablet 25 mg PO DAILY 05/14/22 05/14/22 lisinopril 40 mg tablet 40 mg PO DAILY 05/14/22 05/14/22 meloxicam 7.5 mg tablet 7.5 mg PO DAILY 05/14/22 05/14/22 rosuvastatin 10 mg tablet 10 mg PO HS 05/14/22 05/14/22 metoprolol succinate 25 mg mg PO 05/15/23 tablet,extended release 24 hr Allergies Allergy/AdvReac Type Severity Reaction Status Date / Time Penicillins Allergy Unknown Unknown Verified 05/15/23 14:27 Review of Systems Review of Systems: Pertinent positives per HPI. Patient denies any fever, chills, rash, headache, visual changes, dizziness, cough, runny nose, sore throat, shortness of breath, chest pain, palpitations, nausea, vomiting, diarrhea, constipation, abdominal pain, or any urinary issues. [facility] Past Medical History Medical History Abscess of scrotum Essential hypertension Hyperglycemia Morbid obesity Morbid obesity with BMI of 50.0-59.9, adult Type 2 diabetes mellitus Surgical History Surgical History History of wisdom tooth extraction Family History Family History Mother Hypertension Diabetes mellitus Father Cerebrovascular accident Social History Social History Social History: The patient lives in his own home and [place]. He is not currently employed. He is a former smoker and quit in 2010. No alcohol or illicit substance abuse. He designates his mother, Gale Chinchilla, as his surrogate decision maker. Code status: Full code. Smoking status: Former smoker Alcohol intake: never Substance use: current Substance use type: marijuana Other substance usage details: occasionally smoke Spiritual care concerns: No Comments At the time of my signature, I reviewed and agree with the nursing past medical, surgical, social, and family history. There is no relevant family history pertinent to the patient complaint. Exam Narrative: General: Well-developed, morbidly obese, in no apparent distress Head: Normocephalic, atraumatic. Cardio: Regular rate and rhythm, s1 and s2 normal, no murmur appreciated. Resp: Clear to auscultation bilaterally, no rhonchi, rales, wheezing or rubs. Musculoskeletal: No deformity, tender to palpation over the distal insertion of the hamstring, pain with extending the knee, mild tenderness to the lateral knee, grossly normal range of motion, muscle strength strong and equal, peripheral pulse strong, no edema, no cyanosis, normal gait and station Course Course Emergency Course: Portions of this record may have been created with voice recognition software. Level of Care: Express Care Visit Vital Signs Vital signs: Vital signs reviewed MDM - Extremity Injury (Lower) MDM Narrative Medical decision making narrative: At the time of visit patient is resting comfortably on the exam table. X-ray of the left knee was performed and shows no sign of fracture or malalignment however the patient does have some osteoarthritis. I suspect the patient has a distal hamstring strain to the left leg/knee sprain. Supportive measures were discussed with the patient he
[2023-05-15 14:40] VITALS: BP 143/92; PULSE 84; RESP 20; TEMP 37; O2SAT 96
== END 2023-05-15 15:24 | disposition home or self-care (01) ==
PROVIDERS: Emergency Provider Nurse Practitioner Family; PCP Registered Nurse
DX: S86.912A Strain of unspecified muscle(s) and tendon(s) at lower leg level, left leg, initial encounter (principal); S76.312A Strain of muscle, fascia and tendon of the posterior muscle group at thigh level, left thigh, initial encounter; X50.9XXA Other and unspecified overexertion or strenuous movements or postures, initial encounter; Y99.0 Civilian activity done for income or pay; I10 Essential (primary) hypertension; E11.9 Type 2 diabetes mellitus without complications; E66.01 Morbid (severe) obesity due to excess calories; Z68.43 Body mass index [BMI] 50.0-59.9, adult
CPT/HCPCS: 73564; 99213; G0463

== ENCOUNTER 2024-06-06 13:01 | Emergency (ER) | payer OTHER, SELFPAY ==
--- NOTE | ~2024-06-06 | XR_ITS ---
EXAMINATION: XR finger 3rd RT min 2V DATE: 06/06/2024 13:54 INDICATION: Right hand third digit laceration. TECHNIQUE: 4 views of right hand third digit were obtained. COMPARISON: None. FINDINGS: Bone alignment is normal. No fracture. Joint spaces are normal. IMPRESSION: 1. No fracture. Reviewed, dictated and finalized at location [facility]. IMPRESSION: 1. No fracture.
[2024-06-06 13:04] VITALS: BP 173/107; PULSE 103; RESP 18; TEMP 36.7; O2SAT 98
--- NOTE | 2024-06-06 15:04 | ED.WOUNDLAC ---
HPI - Wound/Laceration General Chief Complaint: Wound/Laceration Stated Complaint: finger lac Time Seen by Provider: 06/06/24 14:58 Source: patient Mode of arrival: ambulatory Limitations: no limitations History of Present Illness HPI narrative: Left hand dominant male presents with laceration to 3rd right digit sustained while using a new knife to cut onions. Patient can not recall last tetanus shot. Not on anticoagulation. Has not yet taken anything for pain, 2 out of 10 in severity before manipulating injury. History of an injury to left 3rd digit that required 13 stitches. Related Data Home Medications Medication Instructions Recorded Confirmed hydrochlorothiazide 25 mg tablet 25 mg PO DAILY 05/14/22 05/14/22 lisinopril 40 mg tablet 40 mg PO DAILY 05/14/22 05/14/22 meloxicam 7.5 mg tablet 7.5 mg PO DAILY 05/14/22 05/14/22 rosuvastatin 10 mg tablet 10 mg PO HS 05/14/22 05/14/22 metoprolol succinate 25 mg mg PO 05/15/23 tablet,extended release 24 hr Allergies Allergy/AdvReac Type Severity Reaction Status Date / Time Penicillins Allergy Unknown Unknown Verified 06/06/24 13:02 [facility] Past Medical History Medical History Abscess of scrotum Essential hypertension Hyperglycemia Morbid obesity Morbid obesity with BMI of 50.0-59.9, adult Type 2 diabetes mellitus Surgical History Surgical History History of wisdom tooth extraction Family History Family History Mother Hypertension Diabetes mellitus Father Cerebrovascular accident Social History Social History Social History: The patient lives in his own home and [place]. He is not currently employed. He is a former smoker and quit in 2010. No alcohol or illicit substance abuse. He designates his mother, Gale Chinchilla, as his surrogate decision maker. Code status: Full code. Smoking status: Former smoker Alcohol intake: never Substance use: current Substance use type: marijuana Other substance usage details: occasionally smoke Spiritual care concerns: No Exam Narrative: GENERAL: Well-appearing, well-nourished, and in no acute distress. HEAD: Normocephalic, atraumatic. EYES: Non injected, non icteric ENT: Nares clear, no rhinorrhea or epistaxis. NECK: Supple. CHEST: Speaking in full sentences. No respiratory distress. HEART: Regular rate and rhythm. 2+ radial pulse in R hand/wrist; brist capilary refill in digit.s ABDOMEN: Soft, nondistended. EXTREMITIES: Normal range of motion. No edema. Left 3rd digit with deformity and clubbed fingernail, chronic from prior injury. RIght 3rd digit with 3cm curvilinear laceration/skin flap, slightly dusky at the very peripheral edges of skin flap, Oozing blood. no nail injury. Can perform flexion and extension. SKIN: Warm, dry. NEURO: No focal deficits. Alert and oriented x3. PSYCH: Normal mood and affect. Course Vital Signs Vital signs: Vital Signs Temperature 98.1 F 06/06/24 13:04 Pulse Rate 103 H 06/06/24 13:04 Respiratory Rate 18 06/06/24 13:04 Blood Pressure 173/107 H 06/06/24 13:04 Pulse Oximetry 98 06/06/24 13:04 Temperature 98.1 F 06/06/24 13:04 Pulse Rate 103 H 06/06/24 13:04 Respiratory Rate 18 06/06/24 13:04 Blood Pressure 173/107 H 06/06/24 13:04 Pulse Oximetry 98 06/06/24 13:04 Procedures Laceration Laceration 1: Date: 06/06/24 Time: 15:55 Site: hand Side (If applicable): right (Third digit) Size (cm): 3 Description: flap (curvilinear) Depth: simple, single layer Local Anesthetic: lidocaine 1% Amount of anesthesia used (mL): 4 Pre-repair: wound explored and irrigated extensively ====== Skin Level ====== Skin laye
[2024-06-06] MEDS: HYDROcodone/acetaminophen (*CRX) 5-325 MG TABLET 1 TAB PO (15:56)
[2024-06-06] MEDS: BACITRACIN OINTMENT 15 GM TUBE 1 APPLIC TOPICAL (16:35)
== END 2024-06-06 16:48 | disposition home or self-care (01) ==
PROVIDERS: Emergency Provider Student in an Organized Health Care Education/Training Program; PCP Registered Nurse
DX: S61.212A Laceration without foreign body of right middle finger without damage to nail, initial encounter (principal); I10 Essential (primary) hypertension; E11.9 Type 2 diabetes mellitus without complications; E66.01 Morbid (severe) obesity due to excess calories; Z68.42 Body mass index [BMI] 45.0-49.9, adult; Z87.891 Personal history of nicotine dependence; Z79.4 Long term (current) use of insulin; Z79.84 Long term (current) use of oral hypoglycemic drugs; Z79.899 Other long term (current) drug therapy; Y93.G1 Activity, food preparation and clean up; W26.0XXA Contact with knife, initial encounter
CPT/HCPCS: 12002; 73140; 99283; A9270

== ENCOUNTER 2024-06-12 11:52 | Emergency (ER) | payer OTHER, SELFPAY ==
[2024-06-12 12:01] VITALS: BP 181/97; PULSE 91; RESP 20; TEMP 36.4; O2SAT 95
--- NOTE | 2024-06-12 12:16 | ED.WOUNDLAC ---
HPI - Wound/Laceration General Chief Complaint: Wound/Laceration Stated Complaint: suture issue Time Seen by Provider: 06/12/24 12:04 Source: patient, RN notes reviewed and old records reviewed Mode of arrival: ambulatory Limitations: no limitations History of Present Illness HPI narrative: Patient presents today for check of a laceration to his right 3rd finger that was sustained 6 days ago on 06/06/2024. Patient was subsequently seen in the emergency room at [facility] for evaluation and laceration repair. Seven sutures were placed in his finger. Patient states he was trying to scrub some dried blood from the edge of the laceration and believes 1 of the sutures has become untied today approximately 1.5 hours prior to exam. Related Data Home Medications Medication Instructions Recorded Confirmed hydrochlorothiazide 25 mg tablet 25 mg PO DAILY 05/14/22 06/12/24 lisinopril 40 mg tablet 40 mg PO DAILY 05/14/22 06/12/24 rosuvastatin 10 mg tablet 10 mg PO HS 05/14/22 06/12/24 metoprolol succinate 25 mg 25 mg PO DAILY 05/15/23 06/12/24 tablet,extended release 24 hr amlodipine 5 mg tablet 5 mg PO DAILY 06/12/24 06/12/24 Allergies Allergy/AdvReac Type Severity Reaction Status Date / Time Penicillins Allergy Unknown Unknown Verified 06/12/24 11:58 Review of Systems Review of Systems: CONSTITUTIONAL: Denies body aches, fever, chills, or sweats. EYES: Denies visual changes, redness, or discharge. ENT: Denies rhinorrhea, congestion, sore throat, or otalgia. CARDIOVASCULAR: Denies chest pain, palpitations, or edema. RESPIRATORY: Denies cough or dyspnea. GASTROINTESTINAL: Denies abdominal pain, nausea, vomiting, or diarrhea. GENITOURINARY: Denies dysuria or hematuria. SKIN: Finger laceration MUSCULOSKELETAL: Denies back pain, joint pain, or myalgia. NEUROLOGIC: Denies headache, numbness, tingling, or weakness. PSYCH: Denies depression or anxiety. [facility] Past Medical History Medical History Abscess of scrotum Essential hypertension Hyperglycemia Morbid obesity Morbid obesity with BMI of 50.0-59.9, adult Type 2 diabetes mellitus Surgical History Surgical History History of wisdom tooth extraction Family History Family History Mother Hypertension Diabetes mellitus Father Cerebrovascular accident Social History Social History Social History: The patient lives in his own home and [place]. He is not currently employed. He is a former smoker and quit in 2010. No alcohol or illicit substance abuse. He designates his mother, Gale Chinchilla, as his surrogate decision maker. Code status: Full code. Smoking status: Former smoker Alcohol intake: never Substance use: current Substance use type: marijuana Other substance usage details: occasionally smoke Spiritual care concerns: No Comments At time of signature, I have reviewed and agree with nursing past medical, surgical, social and family history unless otherwise noted. Please see nursing chart for further information. There is no relevant family history pertinent to the presenting complaint Exam Narrative: GENERAL: Well-appearing, well-nourished, and in no acute distress. HEAD: Normocephalic, atraumatic. EYES: EOMI. No redness or drainage. Conjunctivae normal. ENT: Mucous membranes pink and moist. NECK: Normal AROM. CHEST: No respiratory distress. EXTREMITIES: Right 3rd finger: 6 intact tied sutures present. One suture is and tied and has been pulled almost all the way out. Edges approximated. No active bleeding. SKIN: Warm, dry, no rash. Capillary refill normal. Normal skin turgor. NEURO: No focal deficits. Alert and oriented x3. Gait steady. PSYCH: Normal affect. No signs of depre
== END 2024-06-12 12:15 | disposition home or self-care (01) ==
PROVIDERS: Emergency Provider Nurse Practitioner; PCP Registered Nurse
DX: Z48.01 Encounter for change or removal of surgical wound dressing (principal); Z87.891 Personal history of nicotine dependence; I10 Essential (primary) hypertension; E66.01 Morbid (severe) obesity due to excess calories; Z68.43 Body mass index [BMI] 50.0-59.9, adult; E11.9 Type 2 diabetes mellitus without complications
CPT/HCPCS: 99212; G0463

== ENCOUNTER 2024-06-17 08:29 | Emergency (ER) | payer OTHER, SELFPAY ==
[2024-06-17 08:36] VITALS: BP 158/97; PULSE 87; RESP 20; TEMP 36.6; O2SAT 94
--- NOTE | 2024-06-17 08:54 | ED.WOUNDLAC ---
HPI - Wound/Laceration General Chief Complaint: Wound/Laceration Stated Complaint: Stitches Removal Time Seen by Provider: 06/17/24 09:02 Source: patient, RN notes reviewed and old records reviewed Mode of arrival: ambulatory Limitations: no limitations History of Present Illness HPI narrative: 48-year-old male presents [facility] to have his sutures removed. Says [address], were placed and [facility] 06/06. Distal right 3rd finger. Wound is clean dry approximated. Related Data Home Medications Medication Instructions Recorded Confirmed hydrochlorothiazide 25 mg tablet 25 mg PO DAILY 05/14/22 06/17/24 lisinopril 40 mg tablet 40 mg PO DAILY 05/14/22 06/17/24 rosuvastatin 10 mg tablet 10 mg PO HS 05/14/22 06/17/24 metoprolol succinate 25 mg 25 mg PO DAILY 05/15/23 06/17/24 tablet,extended release 24 hr amlodipine 5 mg tablet 5 mg PO DAILY 06/12/24 06/17/24 Allergies Allergy/AdvReac Type Severity Reaction Status Date / Time Penicillins Allergy Unknown Unknown Verified 06/17/24 08:59 Review of Systems Review of Systems: All systems reviewed & are unremarkable except as noted in HPI and below Constitutional: Constitutional: Reports no additional constitutional complaints Eyes: Eyes: Reports no additional eye complaints ENT: Reports system reviewed and no additional complaints, except as documented Cardiovascular: Cardiovascular: Reports no additional cardiovascular complaints, Denies chest pain and Denies dyspnea Respiratory: Respiratory: Reports no additional respiratory complaints, Denies chest congestion, Denies cough and Denies dyspnea Gastrointestinal: Gastrointestinal: Reports no additional gastrointestinal complaints, Denies abdominal pain, Denies nausea and Denies vomiting Musculoskeletal: Musculoskeletal: Reports no additional musculoskeletal complaints Integumentary/Breasts: Skin/Breast: Reports as per HPI Neurologic: Reports system reviewed and no additional complaints, except as documented Psychiatric: Psychiatric: Reports no additional psychiatric complaints Allergic/Immunologic: Allergic/Immunologic: Reports no additional allergic/immunologic complaints [facility] Past Medical History Medical History Abscess of scrotum Essential hypertension Hyperglycemia Morbid obesity Morbid obesity with BMI of 50.0-59.9, adult Type 2 diabetes mellitus Surgical History Surgical History History of wisdom tooth extraction Family History Family History Mother Hypertension Diabetes mellitus Father Cerebrovascular accident Social History Social History Social History: The patient lives in his own home and [place]. He is not currently employed. He is a former smoker and quit in 2010. No alcohol or illicit substance abuse. He designates his mother, Gale Chinchilla, as his surrogate decision maker. Code status: Full code. Smoking status: Former smoker Alcohol intake: never Substance use: current Substance use type: marijuana Other substance usage details: occasionally smoke Spiritual care concerns: No Comments At the time of my signature, I reviewed and agree with the nursing past medical, surgical, social, and family history. There is no relevant family history pertinent to the patient complaint. Exam Const: General: cooperative, healthy appearing, comfortable, no acute distress, well developed, alert and well nourished Nutritional Appearance: well nourished and obese Orientation/consciousness: patient oriented x3 Limitations: no limitations HENMT: Head: normal to inspection Ears: hearing grossly normal bilaterally and external ears normal Face/Nose/Sinus: Normal external nose present, Normal nares present, Normal nasal mucous membranes and turbinates
== END 2024-06-17 09:17 | disposition home or self-care (01) ==
PROVIDERS: Emergency Provider Nurse Practitioner; PCP Registered Nurse
DX: S61.212D Laceration without foreign body of right middle finger without damage to nail, subsequent encounter (principal); X58.XXXD Exposure to other specified factors, subsequent encounter; I10 Essential (primary) hypertension; E11.9 Type 2 diabetes mellitus without complications; E66.01 Morbid (severe) obesity due to excess calories; Z68.43 Body mass index [BMI] 50.0-59.9, adult; Z87.891 Personal history of nicotine dependence
CPT/HCPCS: 99211; G0463